=== PATIENT | male | born 1975 | race Caucasian/White ===

== ENCOUNTER 2017-05-23 04:10 | Observation (INO) ==
[2017-05-23] MEDS ORDERED: SODIUM CHLORIDE 1,000 ML IV STA (04:36)
[2017-05-23] MEDS ORDERED: ZOFRAN 4 MG/2 ML IVP STA (04:36)
[2017-05-23] MEDS ORDERED: MORPHINE 2 MG/ML SYRINGE IVP STA (04:36)
[2017-05-23 04:41] LABS: BASOPHILS # (AUTO) 0.1 K/uL (0-0.2); BASOPHILS % (AUTO) 0.4 % (0.0-3.0); EOSINOPHILS # (AUTO) 0.4 K/ul (0.0-0.7); EOSINOPHILS % (AUTO) 2.8 % (0.0-7.0); HEMATOCRIT 52.1 % (42.0-52.0); HEMOGLOBIN 18.7 g/dl (14.0-18.0); IMMATURE GRANULOCYTE % (AUTO) 0.3 % (0.0-5.0); LYMPHOCYTES % (AUTO) 13.8 (10.0-50.0); MEAN CORPUSCULAR HEMOGLOBIN 28.1 pg (27.0-31.0); MEAN CORPUSCULAR HGB CONC 35.9 (31.8-35.4); MEAN CORPUSCULAR VOLUME 78.2 fl (80.0-94.0); MONOCYTES # (AUTO) 0.8 K/uL (0.4-2.0); MONOCYTES % (AUTO) 5.5 (0-10); NEUTROPHILS # (AUTO) 11.2 K/ul (2.0-6.9); NEUTROPHILS % (AUTO) 77.2; PLATELET COUNT 203 10^3/uL (140-440); RED BLOOD COUNT 6.66 10^6/ul (4.70-6.10); WHITE BLOOD COUNT 14.54 K/ul (4.2-10.2)
[2017-05-23 04:46] LABS: BILIRUBIN,URINE Negative (NEGATIVE); KETONES,URINE Negative (NEGATIVE); LEUKOCYTE ESTERASE ,URINE Negative (NEGATIVE); NITRITE,URINE Negative (NEGATIVE); PROTEIN,URINE Negative (NEGATIVE); URINE, BLOOD Negative (NEGATIVE)
[2017-05-23 04:47] LABS: ADD URINE MICROSCOPIC NO
[2017-05-23 05:05] LABS: ALBUMIN/GLOBULIN RATIO 1.38; ANION GAP 12.5; BILIRUBIN,TOTAL 0.43 mg/dL (0.00-1.20); BUN/CREATININE RATIO 11.81; CALCIUM 9.7 mg/dL (8.2-10.2); CREATININE 1.1 mg/dL (0.60-1.10); POTASSIUM 3.5 mmol/L (3.5-5.1); TOTAL PROTEIN 6.9 g/dL (6.4-8.2)
[2017-05-23 05:13] LABS: ERYTHROCYTE SEDIMENTATION RATE 0 mm/hr (0-15); ESR INTERNAL QC INTERNAL QC VALID
--- NOTE | 2017-05-23 06:13 | ED.PDOC ---
General ED Provider: Dr. AWILDA CATALAN-ER Chief Complaint: Abdominal Pain Stated Complaint: im hurting and i think its diverticulitis Time Seen by Physician: 04:15 Mode of Arrival: Walk-In Information Source: Patient Exam Limitations: No limitations Nursing and Triage Documentation Reviewed and Agree: Yes GI Complaint Exam - Abdominal Pain Complaint/Exam Onset: Gradual Duration: several h ours Symptoms Are: Still present Timing: Constant Initial Severity: Mild Current Severity: Moderate Location of Pain: LLQ Radiates To: Reports: Back Character: Reports: Dull, Aching, Cramping Aggravating: Reports: None Alleviating: Reports: None Associated Signs and Symptoms: Denies: Diaphoresis, Fever, Cough, Chest pain, Dizziness, Back pain, Constipation, Blood in stool, Dysuria, Urinary frequency, Decreased urine output, Decreased appetite, Discharge, Nausea, Vomiting, Diarrhea, Decreased activity AAA Risk Factors: Reports: Smoking Cardiac Risk Factors: Reports: Smoking Testicular Torsion Risk Factors: Reports: None Surgical Obstruction Risk Factors: Reports: Colicky abdominal pain Abdominal Findings: Present: None Differential Diagnoses: Constipation, Diverticulitis, Ureteral Stone Review of Systems - Review Of Systems Constitutional: Reports: No symptoms Eyes: Reports: No symptoms Ears, Nose, Mouth, Throat: Reports: No symptoms Respiratory: Reports: No symptoms Cardiac: Reports: No symptoms GI: Reports: Abdominal pain : Reports: No symptoms Musculoskeletal: Reports: No symptoms Skin: Reports: No symptoms Neurological: Reports: No symptoms Endocrine: Reports: No symptoms Hematologic/Lymphatic: Reports: No symptoms All Other Systems: Reviewed and Negative Past Medical History - Past Medical History Previously Healthy: Yes Endocrine: Reports: Unknown Cardiovascular: Reports: Unknown Respiratory: Reports: Unknown Hematological: Reports: Unknown Gastrointestinal: Reports: Unknown Genitourinary: Reports: Unknown Neuro/Psych: Reports: Unknown Musculoskeletal: Reports: Unknown Cancer: Reports: Unknown - Surgical History General Surgical History: Reports: Unknown - Family History Family History: Reports: Unknown - Social History Smoking Status: Current every day smoker Hx Substance Use: No Alcohol Screening: None Lives: With family - Immunizations Tetanus Shot up to Date: Yes Physical Exam - Physical Exam Appearance: Well-appearing, No pain distress, Well-nourished Pain Distress: Mild Eyes: JHONATHAN, EOMI, Conjunctiva clear ENT: Ears normal, Nose normal, Oropharynx normal Neck: Supple Respiratory: Airway patent, Breath sounds clear, Breath sounds equal, Respirations nonlabored Cardiovascular: RRR, Pulses normal, No rub, No murmur GI/: Soft, No masses, Bowel sounds normal, No Organomegaly, Tender Musculoskeletal: Normal strength Skin: Warm, Dry, Normal color Neurological: Sensation intact, Motor intact, Reflexes intact, Cranial nerves intact, Alert, Oriented Psychiatric: Affect appropriate, Mood appropriate Interpretation - Radiology Interpretation Radiology Interpretation By: Radiologist Radiology Results: Positive Exam Interpreted: CT Scan Re-Evaluation - Re-Evaluation Time of Re-Evaluation: 06:26 Status: Improved Vital Signs Stable: Yes Pain Level: 0 Appearance: NAD Lungs: Clear Skin: Warm and Dry Neuro: Alert and Oriented X3 CV: RRR Physician Notification - Case Discussed Physician Notified: dr higuera--hospitalist Time of Notification: 06:26 Critical Care Note - Critical Care Note Total Time (mins): 0 Course - Course Hematology/Chemistry: 05/23/17 04:30 05/23/17 04:30 Orders, Labs, Meds: Lab Review 05/23/17 05/23/17 05/23/17 04:10 04:30 04:30 WBC 14.54 H RBC 6.66 H Hgb 18.7 H Hct 52.1 H MCV 78.2 L MCH 28.1 MCHC 35.9 H RDW Coeff of Katie 15.4 H Plt Count 203 Immature Gran % (Auto) 0.3 Neut % (Auto) 77.2 Lymph % (Auto) 13.8 Lyman % (Auto) 5.5 Eos % (Auto) 2.8 Baso % (Auto) 0.4 Immature Gran # (Auto) 0.0 Neut # 11.2 H Lymph # 2.0 Lyman # 0.8 Eos # 0.4 Baso # 0.1 ESR Sodium 140 Potassium 3.5 Chloride 106 Carbon Dioxide 25 Anion Gap 12.5 BUN 13 Creatinine 1.10 Estimated GFR (MDRD) 73.00 BUN/Creatinine Ratio 11.81 Glucose 111 H Calcium 9.7 Total Bilirubin 0.43 AST 21 ALT 34 Alkaline Phosphatase 107 Total Protein 6.9 Albumin 4.0 Globulin 2.9 Albumin/Globulin Ratio 1.38 Amylase 78 Lipase 52 Urine Color Yellow Urine Clarity Clear Urine pH 6.0 Ur Specific [place] 1.015 Urine Protein Negative Urine Glucose (UA) Negative Urine Ketones Negative Urine Blood Negative Urine Nitrite Negative Urine Bilirubin Negative Urine Urobilinogen 0.2 Ur Leukocyte Esterase Negative 05/23/17 04:30 WBC RBC Hgb Hct MCV MCH MCHC RDW Coeff of Katie Plt Count Immature Gran % (Auto) Neut % (Auto) Lymph % (Auto) Lyman % (Auto) Eos % (Auto) Baso % (Auto) Immature Gran # (Auto) Neut # Lymph # Lyman # Eos # Baso # ESR 0 Sodium Potassium Chloride Carbon Dioxide Anion Gap BUN Creatinine Estimated GFR (MDRD) BUN/Creatinine Ratio Glucose Calcium Total Bilirubin AST ALT Alkaline Phosphatase Total Protein Albumin Globulin Albumin/Globulin Ratio Amylase Lipase Urine Color Urine Clarity Urine pH Ur Specific [place] Urine Protein Urine Glucose (UA) Urine Ketones Urine Blood Urine Nitrite Urine Bilirubin Urine Urobilinogen Ur Leukocyte Esterase Orders Category Date Time Status NPO REMINDER: IMAGING ONCE CARE 05/23/17 04:37 Completed ED IV/MEDIPORT/POWERPORT .ONCE EMERGENCY 05/23/17 04:36 Active AMYLASE Stat LAB 05/23/17 04:30 Completed CBC W/ AUTO DIFF Stat LAB 05/23/17 04:30 Completed COMPREHENSIVE METABOLIC PANEL Stat LAB 05/23/17 04:30 Completed ESR Stat LAB 05/23/17 04:30 Completed LIPASE Stat LAB 05/23/17 04:30 Completed URINALYSIS C & S IF INDICATED Stat LAB 05/23/17 04:10 Completed 0.9 % Sodium Chloride [Saline Flush] MEDS 05/23/17 04:36 Ordered 1 syr IVF PRN PRN Morphine Sulfate [Morphine 2 mg/ml Syringe] MEDS 05/23/17 04:36 Discontinued 2 mg IVP ONCE STA Ondansetron HCl/Pf [Zofran 4 mg/2 ml] MEDS 05/23/17 04:36 Discontinued 4 mg IVP ONCE STA Sodium Chloride 0.9% [Sodium Chloride] 1,000 ml MEDS 05/23/17 04:36 Active IV 100 mls/hr CT ABDOMEN/PELVIS W/WO CONTRAS Stat RADS 05/23/17 04:37 Taken Medications Generic Name Dose Route Start Last Admin Trade Name Freq PRN Reason Stop Dose Admin Sodium Chloride 1,000 mls @ 100 mls/hr 05/23/17 04:36 05/23/17 04:40 Sodium Chloride IV 05/23/17 14:35 100 mls/hr .Q10H STA Administration Sodium Chloride 1 syr 05/23/17 04:36 05/23/17 04:47 Saline Flush IVF 1 syr PRN PRN Administration To flush IV Discontinued Medications Generic Name Dose Route Start Last Admin Trade Name Katherine PRN Reason Stop Dose Admin Morphine Sulfate 2 mg 05/23/17 04:36 05/23/17 04:43 Morphine 2 Mg/Ml Syringe IVP 05/23/17 04:37 2 mg ONCE STA Administration Ondansetron HCl 4 mg 05/23/17 04:36 05/23/17 04:42 Zofran 4 Mg/2 Ml IVP 05/23/17 04:37 4 mg ONCE STA Administration Vital Signs: Temp Pulse Resp BP Pulse Ox 05/23/17 04:10 96.6 F L 78 18 135/87 98 Departure - Departure Time of Disposition: 06:26 Disposition: ADMITTED INPATIENT Discharge Problem: Diverticulitis large intestine w/o perforation or abscess w/o bleeding Instructions: Diverticulitis (ED) Condition: Good Pt referred to PMD for follow-up: No Allergies/Adverse Reactions: Allergies No Known Allergies Allergy (Verified 05/23/17 04:20) Home Medications: Ambulatory Orders 1 [No Reported Medications] 05/23/17 Disposition Discussed With: Patient
[2017-05-23] MEDS ORDERED: MORPHINE 2 MG/ML SYRINGE IVP PRN ×2 (06:32→06:43)
[2017-05-23] MEDS ORDERED: ZOFRAN 4 MG/2 ML IVP PRN (06:32)
[2017-05-23 07:53] VITALS: BMI 26.1
--- NOTE | 2017-05-23 09:18 | CT ---
EXAM: CT of the abdomen and pelvis with and without IV contrast. HISTORY: Left lower quadrant pain. PROCEDURE: Contiguous axial CT images of the abdomen and pelvis with and without IV contrast with co meli and sagittal reformats. FINDINGS: The liver, gallbladder, pancreas, spleen, adrenal glands and kidneys are normal in appeara nce. The abdominal aorta is normal in appearance. The appendix is normal in appearance. There is d iverticulosis of the colon. There is focal bowel wall thickening in the distal descending colon josefa uring 0.8 cm with adjacent inflammatory stranding consistent with diverticulitis. No free fluid or f ree air in the abdomen or pelvis. The bladder is adequately filled with no abnormality identified. The seminal vesicles and prostate gland are unremarkable. There are operative changes and degenerati ve changes in the spine. Impression: Diverticulitis of the sigmoid colon as described.
[2017-05-23] MEDS: D5%-NS-KCL 20 MEQ/L IV SOL 1,000 ML IV SCH ×2 (09:36→20:12)
[2017-05-23] MEDS: LEVAQUIN 500 MG in PREMIX 100 ML D5W 1 BAG IV SCH ×2 (09:41→09:42)
[2017-05-23] MEDS: MORPHINE 4 MG/ML SYRINGE IVP PRN ×6 (09:50→21:50)
--- NOTE | 2017-05-23 11:57 | PCM.PROG ---
Attending Provider: ATTENDING PROVIDER: [facility] DATE OF SERVICE: 05/23/17 SUBJECTIVE: This 41 year old WHITE/ M was hospitalized 05/23/17. The patient is seen with Sandee, Nurse Practitioner. The patient is alert, lying in bed. The patient started with left-sided abdominal pain yesterday. He came to ER last night. The patient 's last colonoscopy was in 2013. He has had had diarrhea which he says is chronic. No nausea, or vomiting. No fever. REVIEW OF SYSTEMS: CONSTITUTIONAL: No night sweats. No fatigue, malaise, lethargy. No fever or chills. HEENT: Eyes: No visual changes. No eye pain. No eye discharge. ENT: No runny nose. No epistaxis. No sinus pain. No odynophagia. No congestion. RESPIRATORY: No cough, no congestion. No hemoptysis. No shortness of breath. CARDIOVASCULAR: No angina symptoms. No CHF symptoms. No atypical chest pain for CAD. No palpitations. No orthopnea.. GASTROINTESTINAL: Diarrhea. Abdominal pain. No nausea or vomiting. No hematemesis. No hematochezia. GENITOURINARY: No urgency. No frequency. No dysuria. No hematuria. No obstructive symptoms. No discharge. No pain. No significant abnormal bleeding. MUSCULOSKELETAL: No musculoskeletal pain; no joint swelling. NEUROLOGICAL: Awake, alert, oriented to time, place and person. No headache. No neck pain. No syncope. No seizures. No dizziness. PSYCHIATRIC: Not anxious. No depression. No suicidal thoughts. No homicidal thoughts. SKIN: No rash. No lesions. No wounds. ENDOCRINE: No unexplained weight loss. No weight gain. HEMATOLOGIC/LYMPHATIC: No anemia. No purpura. No petechiae. No prolonged or excessive bleeding. No palpable lymph nodes. PHYSICAL EXAMINATION: GENERAL: The patient is awake, alert and oriented, lying in bed in no distress. VITAL SIGNS: Temperature 96.6 F, Pulse 78, Respiratory Rate 18, BP 135/87, Pulse Ox 98% HEENT: Head normocephalic, atraumatic. Eyes: Extraocular muscles are intact. Pupils are equal, round and reactive to light and accommodation. Ears: No lesions. Nose appeared normal. Throat: No exudate or erythema. NECK: Supple. No JVD, no carotid bruit. No lymphadenopathy or thyromegaly. LUNGS: Diminished breath sounds. Clear to auscultation. Percussion note normal. Chest symmetrical. HEART: S1, S2, no S3. No murmurs. No cyanosis or clubbing. No ascites. Pulses: Dorsalis pedis and posterior tibial pulses +1 to +2 both sides. ABDOMEN: Soft. Left lower quadrant tenderness. Bowel sounds active. No CVA tenderness. No mass felt. EXTREMITIES: No edema. Full range of motion of all extremities, equal. NEUROLOGIC: No focal deficit. Cranial nerves II through XII are grossly intact. No headache, no double vision or headache. SKIN: Not dry. Intact. Turgor-normal. LYMPHATIC: No palpable lymph nodes/no lymphedema. MUSCULOSKELETAL: Normal joints with no swelling. Muscle tone is normal. ASSESSMENT: 1. Left lower quadrant abdominal pain, CT pending. 2. Polycythemia 3. Smoker PLAN: 1. Due to history of diverticulitis, will treat until CT results are back. Plan and coordination of the patient's care discussed in the presence of Filling Station Attendant and nurse. CONDITION: Stable SCRIBED BY: ROBERTO GRACE Practice Or Student Teacher scribed while in presence of service performed by Dr. FRANCIA MURPHY-[facility] on 05/23/17 ([id number])
[2017-05-23] MEDS: FLAGYL 500 MG/100 ML 500 MG in PREMIX 100 ML NS 1 BAG IV SCH ×2 (13:00→20:34)
[2017-05-24] MEDS: MORPHINE 4 MG/ML SYRINGE IVP PRN ×3 (00:12→05:33)
[2017-05-24] MEDS: FLAGYL 500 MG/100 ML 500 MG in PREMIX 100 ML NS 1 BAG IV SCH (04:09)
[2017-05-24 04:49] LABS: BASOPHILS % (AUTO) 0.3 % (0.0-3.0); EOSINOPHILS # (AUTO) 0.4 K/ul (0.0-0.7); EOSINOPHILS % (AUTO) 3.1 % (0.0-7.0); HEMATOCRIT 50.6 % (42.0-52.0); HEMOGLOBIN 17.9 g/dl (14.0-18.0); IMMATURE GRANULOCYTE % (AUTO) 0.2 % (0.0-5.0); LYMPHOCYTES # (AUTO) 2.4 K/uL (0.60-3.4); LYMPHOCYTES % (AUTO) 18.8 (10.0-50.0); MEAN CORPUSCULAR HGB CONC 35.4 (31.8-35.4); MEAN CORPUSCULAR VOLUME 79.2 fl (80.0-94.0); MONOCYTES # (AUTO) 1.1 K/uL (0.4-2.0); MONOCYTES % (AUTO) 8.5 (0-10); NEUTROPHILS % (AUTO) 69.1; PLATELET COUNT 207 10^3/uL (140-440); RED BLOOD COUNT 6.39 10^6/ul (4.70-6.10); WHITE BLOOD COUNT 12.96 K/ul (4.2-10.2)
[2017-05-24 05:15] LABS: ALBUMIN 3.4 g/dL (3.4-5.0); ALBUMIN/GLOBULIN RATIO 1.13; ANION GAP 11.1; BILIRUBIN,TOTAL 0.82 mg/dL (0.00-1.20); BUN/CREATININE RATIO 7.2; CALCIUM 9.4 mg/dL (8.2-10.2); CREATININE 1.11 mg/dL (0.60-1.10); POTASSIUM 4.1 mmol/L (3.5-5.1); TOTAL PROTEIN 6.4 g/dL (6.4-8.2)
[2017-05-24 05:44] VITALS: BP 118/78; TEMP 98.3
[2017-05-24] MEDS: D5%-NS-KCL 20 MEQ/L IV SOL 1,000 ML IV SCH ×3 (06:21→07:01)
[2017-05-24] MEDS ORDERED: MORPHINE 2 MG/ML SYRINGE IVP PRN (07:53)
[2017-05-24] MEDS: LEVAQUIN 500 MG in PREMIX 100 ML D5W 1 BAG IV SCH (08:32)
--- NOTE | 2017-05-24 13:02 | PCM.PROG ---
Attending Provider: [facility] DATE [facility]: 05/24/17 SUBJECTIVE: This 41 year old WHITE/ M was hospitalized 05/23/17. The patient is seen with Sandee, Nurse Practitioner. The patient is lying in bed, alert. The patient states he feels well enough to go home. He has been getting up and going outside to smoke. He is eating 75% of his meals. The abdominal pain is slightly better. No fever. No diarrhea. REVIEW OF SYSTEMS: CONSTITUTIONAL: No night sweats. No fatigue, malaise, lethargy. No fever or chills. HEENT: Eyes: No visual changes. No eye pain. No eye discharge. ENT: No runny nose. No epistaxis. No sinus pain. No odynophagia. No congestion. RESPIRATORY: No cough, no congestion. No hemoptysis. No shortness of breath. CARDIOVASCULAR: No angina symptoms. No CHF symptoms. No atypical chest pain for CAD. No palpitations. No orthopnea.. GASTROINTESTINAL: Abdominal pain has improved. No nausea or vomiting. No diarrhea or constipation. No hematemesis. No hematochezia. GENITOURINARY: No urgency. No frequency. No dysuria. No hematuria. No obstructive symptoms. No discharge. No pain. No significant abnormal bleeding. MUSCULOSKELETAL: No musculoskeletal pain; no joint swelling. NEUROLOGICAL: Awake, alert, oriented to time, place and person. No headache. No neck pain. No syncope. No seizures. No dizziness. PSYCHIATRIC: Not anxious. No depression. No suicidal thoughts. No homicidal thoughts. SKIN: No rash. No lesions. No wounds. ENDOCRINE: No unexplained weight loss. No weight gain. HEMATOLOGIC/LYMPHATIC: No anemia. No purpura. No petechiae. No prolonged or excessive bleeding. No palpable lymph nodes. PHYSICAL EXAMINATION: GENERAL: The patient is awake, alert and oriented, lying in bed in no distress. VITAL SIGNS: Temperature 98.3 F, Pulse 89, Respiratory Rate 19, BP 118/78, Pulse Ox 96% HEENT: Head normocephalic, atraumatic. Eyes: Extraocular muscles are intact. Pupils are equal, round and reactive to light and accommodation. Ears: No lesions. Nose appeared normal. Throat: No exudate or erythema. NECK: Supple. No JVD, no carotid bruit. No lymphadenopathy or thyromegaly. LUNGS: Diminished breath sounds. Clear to auscultation. Percussion note normal. Chest symmetrical. HEART: S1, S2, no S3. No murmurs. No cyanosis or clubbing. No ascites. Pulses: Dorsalis pedis and posterior tibial pulses +1 to +2 both sides. ABDOMEN: Soft. Left lower quadrant tenderness. Bowel sounds active. No CVA tenderness. No mass felt. EXTREMITIES: No edema. Full range of motion of all extremities, equal. NEUROLOGIC: No focal deficit. Cranial nerves II through XII are grossly intact. No headache, no double vision or headache. SKIN: Not dry. Intact. Turgor-normal. LYMPHATIC: No palpable lymph nodes/no lymphedema. MUSCULOSKELETAL: Normal joints with no swelling. Muscle tone is normal. LAB REVIEW: 05/24/17 04:46 05/24/17 04:46 05/24/17 04:46: Sodium 140, Potassium 4.1, Chloride 107, Carbon Dioxide 26, Anion Gap 11.1, BUN 8, Creatinine 1.11 H, Estimated GFR (MDRD) 73.00, BUN/ Creatinine Ratio 7.20, Glucose 110 H, Calcium 9.4, Total Bilirubin 0.82, AST 16 , ALT 26, Alkaline Phosphatase 92, Total Protein 6.4, Albumin 3.4, Globulin 3.0 , Albumin/Globulin Ratio 1.13 05/24/17 04:46: WBC 12.96 H, RBC 6.39 H, Hgb 17.9, Hct 50.6, MCV 79.2 L, MCH 28.0, MCHC 35.4, RDW Coeff of Katie 14.9 H, Plt Count 207, Immature Gran % (Auto) 0.2, Neut % (Auto) 69.1, Lymph % (Auto) 18.8, [place] % (Auto) 8.5, Eos % (Auto) 3.1, Baso % (Auto) 0.3, Immature Gran # (Auto) 0.0, Neut # 9.0 H, Lymph # 2.4, [place] # 1.1, Eos # 0.4, Baso # 0.0 ASSESSMENT: 1. Acute diverticulitis 2. Polycythemia 3. Smoker PLAN: 1. Diet discussed 2. Smoking cessation discussed 3. Flagyl 500 mg t.i.d. times 10 days 4. Levaquin 500 mg once a day times 6 days 5. Discharge home 6. Sawyer 5 mg t.i.d. p.r.n.#30 Plan and coordination of the patient's care discussed in the presence of Coin Dealer and nurse. CONDITION: Stable SCRIBED BY: ROBERTO GRACE Technical Support 1 Software Engineer scribed while in presence of service performed by Dr. FRANCIA MURPHY-[facility]/SANDEE ASHRAF APRN on 05/24/17 ([id number])
--- NOTE | 2017-05-25 09:18 | PN ---
DATE OF SERVICE: 05/24/17 SUBJECTIVE: 41 year old white male hospitalized with left lower quadrant pain with acute diverticulitis. The patient is up and about smoking. His appetite is normal. He is hungry this morning. He is passing gas. He is insisting going home otherwise he is going to sign out against medical advise. PHYSICAL EXAMINATION: HEENT: Head normocephalic, atraumatic. Eyes: Extraocular muscles are intact. Pupils are equal, round and reactive to light and accommodation. Ears: No lesions. Nose appeared normal. Throat: No exudate or erythema. NECK: Supple. No JVD, no carotid bruit. No lymphadenopathy or thyromegaly. LUNGS: Clear to auscultation. Percussion note normal. Chest symmetrical. HEART: S1, S2, no S3. No murmurs. No cyanosis or clubbing. No ascites. Pulses: Dorsalis pedis and posterior tibial pulses +1 to +2 both sides. ABDOMEN: Soft. Practically Nontender. Bowel sounds active. No CVA tenderness. No mass felt. EXTREMITIES: No edema. Full range of motion of all extremities, equal. NEUROLOGIC: No focal deficit. Cranial nerves II through XII are grossly intact. No headache, no double vision or headache. SKIN: Not dry. Intact. Turgor - normal. LYMPHATIC: No palpable lymph nodes/no lymphedema. MUSCULOSKELETAL: Normal joints with no swelling. Muscle tone is normal. ASSESSMENT: 1. Acute diverticulitis seems to have resolved clinically. The patient is refusing to have repeat CAT scan PLAN: 1. We will put patient on Flagyl 2. Discharge him home 3. To be seen on . 4. Advised soft diet and full liquids with no dairy products 5. Explained about diverticulitis and it's complications. If fever and chills with abdominal pain go to the emergency room. 6. The patient is going to be scheduled Dr. Ferguson, he saw before. 7. Counseling for smoking done 8. Diet for diverticulosis discussed CONDITION: Stable The patient was seen and examined with Nurse Practitioner and Audit Practice Intern. TIME SPENT: More than 30 minutes. Plan and coordination of the patient's care discussed in the presence of nurse. DUGLAS
--- NOTE | 2017-05-25 09:59 | DS ---
DATE OF SERVICE: 05/24/17 FINAL DIAGNOSIS: 1. Acute Diverticulitis 2. Smoker DISCHARGE INSTRUCTIONS: Discharge the patient home today. Return to see Dr. Griffin on 05/26/17 at 10:30am. Keep appointment with Dr. Ferguson on 06/21/17 at 10:20am. No home medications. NEW PRESCRIPTIONS: Flagyl 500mg take one tablet by mouth three times a day for 10 days Levaquin 500mg take one tablet by mouth daily for 6 days Tramadol 50mg take one to two tablets by mouth twice daily if needed PRN pain. DIET INSTRUCTIONS: Diverticulitis diet Healthy Heart. ACTIVITY: No work until released by Dr. Griffin Get plenty of rest at home. Gradually increase activity level according to toleration. SMOKING: Counseling for smoking done. DISEASE SPECIFIC EDUCATION: Diet Followup Medications Smoking cessation HOSPITAL COURSE: This is a 41 year old male who presented to the emergency room at [facility] complaining of left sided abdominal pain that was cramping and colicky in nature. He states he had a history of diverticulitis in the past. His last colonoscopy was in [address] Watkins in [place]. He had not been experiencing any fever. He had had some diarrhea which he states is chronic and he always has. He was not currently on any medication and stated that he had no regular doctor. He was subsequently admitted and placed on IV Levaquin 500mg Q 24 hours along with Flagyl 500mg three times a day. On admission his white was 14,000, hgb 18.4 and today on day of discharge WBC is improved at 12.96, hgb improved at 17.9, sodium 140, potassium 4.1, BUN 8, creatinine 1.11. He has remained afebrile white he has been here. He was not febrile at admission and has not had any fever since being here. He stated this morning that he was ready to go home and did not want to stay in the hospital. He would like to be discharge. He has been eating 75% of his meals since admission and has also been getting up and going outside to smoke every 2-3 hours. He will discharged on Levaquin 500mg PO daily for the next 6 days along with Flagyl 500mg three times a day for the next 10 days. He is instructed to return to our office on for a followup. He is not allowed to work through the rest of the week. Information has been given to him regarding a low residual diet. He is instructed to advance diet as tolerated. Education was provided regarding smoking cession. He was given Ultram 50mg three times a day for pain if needed. We will see him in the office later this week. He is discharged in stable. Again the patient strongly voiced option that he was ready to be discharged today. TIME SPENT: More than 60 minutes. DUGLAS
--- NOTE | 2017-05-25 11:32 | HP ---
DATE OF SERVICE: 05/23/17 REASON FOR HOSPITALIZATION/HISTORY OF PRESENT ILLNESS: This is a 41 year old white who presented to the emergency room early this morning complaining of abdominal pain stating that he thought it was diverticulitis. He has had this before. He stated that his pain started two days ago and had gradually gotten worse. He was experiencing diarrhea however that this was chronic for him. He had had not fever, no nausea and no vomiting. REVIEW OF SYSTEMS: CONSTITUTIONAL: No night sweats. No fatigue, malaise, lethargy. No fever or chills. Decreased appetite. HEENT: Eyes: No visual changes. No eye pain. No eye discharge. ENT: No runny nose. No epistaxis. No sinus pain. No sore throat. No odynophagia. No ear pain. No congestion. RESPIRATORY: No cough, no congestion. No hemoptysis. No shortness of breath. CARDIOVASCULAR: No angina symptoms. No CHF symptoms. No atypical chest pain for CAD. No palpitations. No orthopnea. GASTROINTESTINAL: Abdominal pain. No nausea or vomiting. Diarrhea. No hematemesis. No hematochezia. GENITOURINARY: No urgency. No frequency. No dysuria. No hematuria. No obstructive symptoms. No discharge. No pain. No significant abnormal bleeding. MUSCULOSKELETAL: No musculoskeletal pain. No joint swelling. No arthritis. NEUROLOGICAL: No headache. No neck pain. No syncope. No seizures. No dizziness. No confusion. Alert and oriented. PSYCHIATRIC: Not anxious. No depression. No suicidal thoughts. No homicidal thoughts. SKIN: No rash. No lesions. No wounds. ENDOCRINE: No unexplained weight loss. No weight gain. HEMATOLOGIC/LYMPHATIC: No anemia. No purpura. No petechiae. No prolonged or excessive bleeding. No palpable lymph nodes. PERSONAL/FAMILY/SOCIAL HISTORY: At least a pack per day smoker. He denies any alcohol or illicit drug use. He currently lives with his family. PAST MEDICAL/SURGICAL PROBLEMS: Colonoscopy [place] [address] Watkins History of diverticulitis Spinal fusion L4 and L5 and S1 by Dr. Lynch Right knee repair after injury Left inguinal hernia repair The patient states that he has no primary doctor. MEDICATIONS: None ALLERGIES: No known allergies. PHYSICAL EXAMINATION: GENERAL: The patient is well appearing and no acute distress, Well nourished and describes pain as mild. VITAL SIGNS: Temperature 96.6, heart rate 78, respirations 18, blood pressure 135/87 and pulse ox 98% on room air. HEENT: Head normocephalic, atraumatic. Eyes: Extraocular muscles are intact. Pupils are equal, round and reactive to light and accommodation. Ears: No lesions. Nose and oral oropharynx was pink. Moist mucosa. Throat: No exudate or erythema. NECK: Supple. No JVD, no carotid bruit. No lymphadenopathy or thyromegaly. LUNGS: Clear with diminished breath sounds bilaterally. Respirations are nonlabored. Percussion note normal. Chest symmetrical. HEART: S1, S2, no S3. No murmurs. No cyanosis or clubbing. No ascites. Pulses: Dorsalis pedis and posterior tibial pulses +1 to +2 both sides. ABDOMEN: Soft non distended. Mild tenderness left lower quadrant. Bowel sounds active times four quadrants. No CVA tenderness. No mass felt. EXTREMITIES: No edema. Full range of motion of all extremities, equal. No calf tenderness. NEUROLOGIC: No focal deficit. Cranial nerves II through XII are grossly intact. No headache, no double vision or headache. The patient is alert and oriented times three. SKIN: Warm. Dry. Intact. Turgor - normal. LYMPHATIC: No palpable lymph nodes/no lymphedema. MUSCULOSKELETAL: Normal joints with no swelling. Muscle tone is normal. LABS: CT scan revealed sigmoidal diverticulitis of the colon. WBC 14.54, hgb 18.7, hct 52.1, plt count 203, sodium 140, potassium 3.5, BUN 13, creatinine 1.1, glucose 111, calcium 9.7, AST 21, ALT 34, Alkaline phosphatase 107, total protein 6.9, amylase 78, lipase 52, urine is normal no protein, no blood and no nitrate, no bilirubin and leukocyte esterase. ASSESSMENT: 1. Sigmoidal diverticulitis 2. Polycythemia 3. Smoker PLAN: 1. Will be placed on IV fluids 2. IV Levaquin once daily 3. IV Flagyl 500mg three times a day 4. Routine telemetry orders 5. Chest x-ray 6. CBC and CMP daily 7. Low residual BRAT diet 8. Zofran PRN for nausea 9. Morphine 4mg IV Q 4 hours PRN for pain 10.He is a full code Will monitor closely. TIME SPENT: More than 70 minutes. MTDD
--- NOTE | 2017-05-25 13:43 | PN ---
DATE OF SERVICE: 05/23/17 ADMIT NOTE SUBJECTIVE: The patient is a 41 year old white male was seen and examined in the ER and was diagnosed to have acute diverticulitis left sided, complained of left lower quadrant pain for a few days. The patient has history of diverticulitis. He has colonoscopy done in the near past by Dr. Watkins. PHYSICAL EXAMINATION: GENERAL: The patient is oriented to time, place and person. HEENT: Head normocephalic, atraumatic. Eyes: Extraocular muscles are intact. Pupils are equal, round and reactive to light and accommodation. Ears: No lesions. Nose appeared normal. Throat: No exudate or erythema. NECK: Supple. No JVD, no carotid bruit. No lymphadenopathy or thyromegaly. LUNGS: Decreased breath sounds bilaterally and clear to auscultation. Percussion note normal. Chest symmetrical. HEART: S1, S2, no S3. No murmurs. No cyanosis or clubbing. No ascites. Pulses: Dorsalis pedis and posterior tibial pulses +1 to +2 both sides. ABDOMEN: Soft. Left lower quadrant tenderness mild. Bowel sounds active. No CVA tenderness. No mass felt. EXTREMITIES: No edema. Full range of motion of all extremities, equal. NEUROLOGIC: No focal deficit. Cranial nerves II through XII are grossly intact. No headache, no double vision or headache. SKIN: Not dry. Intact. Turgor - normal. LYMPHATIC: No palpable lymph nodes/no lymphedema. MUSCULOSKELETAL: Normal joints with no swelling. Muscle tone is normal. The first time I went to see the patient he was out smoking. LABS: CT scan of the abdomen showed acute diverticulitis ASSESSMENT: 1. Acute diverticulitis PLAN: 1. Given IV Flagyl and Levaquin 2. The patient has polycythemia likely from smoking and chronic lung disease and explained about this finding and complications that could occur from polycythemia 3. Counseling for smoking done 4. Counseling for the diet for diverticulitis done CONDITION: Stable. TIME SPENT: More than 30 minutes. Plan and coordination of the patient's care discussed in the presence of nurse. DUGLAS
== END 2017-05-24 10:23 | disposition home or self-care (01) ==
LOC: ED 04:10 → INTOOBSV 06:40 → MEDSURG B 06:40
PROVIDERS: ADMIT Internal Medicine; ATTEND Internal Medicine
DX: K57.32 Diverticulitis of large intestine without perforation or abscess without bleeding (principal); R10.814 Left lower quadrant abdominal tenderness; D75.1 Secondary polycythemia; J44.9 Chronic obstructive pulmonary disease, unspecified; F17.200 Nicotine dependence, unspecified, uncomplicated
CPT/HCPCS: 36415; 80053; 81001; 82150; 83690; 85025; 85651; 93005; 93010; 96361; 96374; 96375; 96376; 99284

== ENCOUNTER 2024-06-18 21:47 | Inpatient (IN) ==
--- NOTE | 2024-06-18 22:16 | ED.PDOC ---
General ED Provider: Dr. ARELY HUBBARD MD Chief Complaint: Abdominal Pain Stated Complaint: 48-year-old male reported to the emergency department for acute abdominal pain. Patient stated that most of his abdominal pain is in the mid and lower quadrants of the abdomen. Patient stated that like a burning sensation. Patient stated that he was seen 2 days ago in an ER in [facility] and received an abdominal CTs which showed no pathology per the patient. Patient stated that he was started on Carafate and told to continue to take his pantoprazole 40 mg daily and follow-up with a GI specialist. Patient stated that he has an appointment with GI specialist in 2 days but could not wait as his abdominal pain was a 10 out of 10. Patient states that his abdominal pain is continuous. Patient stated that the only abdominal surgery he had was an inguinal hernia repair 30 years ago. Patient denies any recent trauma to the abdomen. Patient denies any recent illnesses. Patient denies any nausea, vomiting, diarrhea, dizziness, syncope, headache, fever or any other acute symptoms. Patient denied any melanic stools. Patient denied any hematochezia, hemoptysis. Patient's vital signs are currently stable. Patient's GCS is 15. Time Seen by Provider: 06/18/24 21:49 Mode of Arrival: Walk-In Information Source: Patient Exam Limitations: No limitations Primary Care Provider: DON SCHAFER APRN Nursing and Triage Documentation Reviewed and Agree: Yes Does Patient Take Opioids?: No Is Patient Opioid Naive?: No What is Opioid Naive?: *Opioid Naive implies the patient is not already taking opioids or not chronically receiving opioids on a daily basis. *PRN dosing is not "usually" associated with tolerance. *Patients are at higher risk of over-sedation and aspiration. Is Patient Opioid Tolerant?: No What is Opioid Tolerant?: *Opioid Tolerance implies less than the expected response to an opioid. *Acquired tolerance is defined by the patient taking 60mg of oral morphine daily (or equianalgesic dose of another opioid) for 1 week or more. *Often associated with chronic pain. *May take more than usual dose to achieve desired pain control. Review of Systems Review Of Systems Constitutional: Reports No symptoms Eyes: Reports No symptoms Ears, Nose, Mouth, Throat: Reports No symptoms Respiratory: Reports No symptoms Cardiac: Reports No symptoms GI: Reports Abdominal pain : Reports No symptoms Musculoskeletal: Reports No symptoms Skin: Reports No symptoms Neurological: Reports No symptoms Endocrine: Reports No symptoms Hematologic/Lymphatic: Reports No symptoms All Other Systems: Reviewed and Negative PFSH Family History Mother Cancer FATHER Heart problem Hypertension Stroke Social History Smoking and tobacco status: Current every day smoker History of recent travel: No Surgical History hernia surgery back surgery Physical Exam Physical Exam Appearance: Reports Well-nourished Ill-appearing: None Pain Distress: Severe Eyes: Reports JHONATHAN, EOMI and Conjunctiva clear ENT: Reports Nose normal and Oropharynx normal Neck: Supple Respiratory: Reports Airway patent, Breath sounds clear, Breath sounds equal and Respirations nonlabored Cardiovascular: Reports RRR, Pulses normal, No rub and No murmur GI/: Reports Soft, No masses, Bowel sounds normal and Tender (Patient had tenderness to palpation of the mid abdomen and lower abdominal quadrants. No masses noted. No bruising noted. No rebound tenderness. No Bello sign.) Musculoskeletal: Reports Normal strength, ROM intact, No edema and No calf tenderness Skin: Reports Warm, Dry and Normal color Neurological: Reports Sensation intact, Motor intact, Reflexes intact, Cranial nerves intact, Alert and Oriented Psychiatric: Reports Affect appropriate and Mood appropriate Course Course 06/18/24 22:14 06/18/24 22:14 Orders, Labs, Meds: Lab Review 06/18/24 06/18/24 22:05 22:14 WBC 13.90 H RBC 6.49 H Hgb 12.5 L Hct 42.8 MCV 65.9 L MCH 19.3 L MCHC 29.2 L RDW Coeff of Katie 21.5 H Plt Count 720 H Immature Gran % (Auto) 0.4 Neut % (Auto) 71.1 Lymph % (Auto) 18.9 [place] % (Auto) 5.6 Eos % (Auto) 3.5 Baso % (Auto) 0.5 Neut # (Auto) 9.9 H Lymph # (Auto) 2.6 [place] # (Auto) 0.8 Eos # (Auto) 0.5 Baso # (Auto) 0.1 Immature Gran # (Auto) 0.1 Sodium 135.0 Potassium 3.93 Chloride 103.7 Carbon Dioxide 19.7 L Anion Gap 15.53 BUN 15.9 Creatinine 1.46 H Estimated GFR (MDRD) 51.00 BUN/Creatinine Ratio 10.89 Glucose 118.9 H Calcium 8.46 Total Bilirubin 0.74 AST 41.1 ALT 25.4 Alkaline Phosphatase 133.0 H Total Protein 5.96 L Albumin 3.11 L Globulin 2.85 Albumin/Globulin Ratio 1.09 Lipase 434.0 H Urine Color Yellow Urine Clarity Clear Urine pH 6.5 Ur Specific [place] 1.020 Urine Protein Trace H Urine Glucose (UA) Negative Urine Ketones Negative Urine Blood Negative Urine Nitrite Negative Urine Bilirubin Negative Urine Urobilinogen 0.2 Ur Leukocyte Esterase Negative Urine Microscopic RBC 0-2 Urine Microscopic WBC 2-5 Ur Squamous Epith Cells 5-10 Ur Renal Epithelial Cell 0-2 Urine Bacteria Trace Urine Mucus Trace Orders Category Date Time Status NPO REMINDER: IMAGING ONCE CARE 06/18/24 22:09 Active CBC W/ AUTO DIFF Stat LAB 06/18/24 22:14 Completed COMPREHENSIVE METABOLIC PANEL Stat LAB 06/18/24 22:14 Completed H. PYLORI SCREEN Stat LAB 06/18/24 Ordered LIPASE Stat LAB 06/18/24 22:14 Completed URINALYSIS C & S IF INDICATED Stat LAB 06/18/24 22:05 Completed Morphine Sulfate [Morphine 4 mg/ml Syringe] Meds 06/18/24 22:08 Discontinued 4 mg IVP ONCE ONE Pantoprazole Sodium [Protonix] Meds 06/18/24 22:10 Discontinued 40 mg IVP ONCE ONE Sodium Chloride 0.9% [Sodium Chloride] 1,000 ml Meds 06/18/24 22:[address] ABDOMEN/PELVIS W CONTRAST Stat RADS 06/18/24 22:08 Ordered Medications Generic Name Dose Route Start Last Admin Trade Name Freq PRN Reason Stop Dose Admin Sodium Chloride 1,000 mls @ 1,000 mls/hr 06/18/24 22:08 06/18/24 22:32 Sodium Chloride IV 06/18/24 23:07 1,000 mls/hr BOLUS ONE Administration Discontinued Medications Generic Name Dose Route Start Last Admin Trade Name Freq PRN Reason Stop Dose Admin Morphine Sulfate 4 mg 06/18/24 22:08 06/18/24 22:32 Morphine Sulfate 4 Mg/Ml Syringe IVP 06/18/24 22:09 4 mg ONCE ONE Administration Pantoprazole Sodium 40 mg 06/18/24 22:10 10/07/24 22:32 Pantoprazole Sodium 40 Mg Vial IVP 06/18/24 22:11 40 mg ONCE ONE Administration Vital Signs: Temp Pulse Resp BP Pulse Ox 06/18/24 21:48 98.8 F 79 20 178/121 H 99 Discharge Plan Discharge Patient Disposition: PLACED OBSERVATION Discharge Problem: Abdominal pain, acute, Thrombocytosis, SUZANNA (acute kidney injury) Hypertension Qualifiers: Hypertension type: unspecified Qualified Code(s): I10 - Essential (primary) hypertension Acute pancreatitis Qualifiers: Pancreatitis type: idiopathic Acute pancreatitis complication: unspecified Q ualified Code(s): K85.00 - Idiopathic acute pancreatitis without necrosis or infection Did you review [place] DECONTAMINATOR for ALL controlled substances?: Not Applicable ED Provider: ARELY HUBBARD Condition: Stable Physician Progress Note: 48-year-old male reported to the emergency department for acute abdominal pain. Patient stated that most of his abdominal pain is in the mid and lower quadrants of the abdomen. Patient stated that like a burning sensation. Patient stated that he was seen 2 days ago in an ER in [facility] and received an abdominal CTs which showed no pathology per the patient. Patient stated that he was started on Carafate and told to continue to take his pantoprazole 40 mg daily and follow-up with a GI specialist. Patient stated that he has an appointment with GI specialist in 2 days but could not wait as his abdominal pain was a 10 out of 10. Patient states that his abdominal pain is continuous. Patient stated that the only abdominal surgery he had was an inguinal hernia repair 30 years ago. Patient denies any recent trauma to the abdomen. Patient denies any recent illnesses. Patient denies any nausea, vomiting, diarrhea, dizziness, syncope, headache, fever or any other acute symptoms. Patient denied any melanic stools. Patient denied any hematochezia, hemoptysis. Patient's vital signs are currently stable. Patient's GCS is 15. After reviewing the patient's records from [facility] in [facility] on 06/18/2024 at 11:28 PM it appears patient has a significant history of GERD, hypertension, pancreatitis, and diverticulitis. CT at this visit showed no acute findings. They did mention that in the note that the patient does see Dr. Flores for GI and is scheduled to see them this week for follow-up. They stated the patient was prescribed sucralfate 1 g tablet they also mentioned in the note that they were suspicious for pancreatitis however the patient was negative via CT or lipase. -Will order a CT of the abdomen and pelvis with IV and oral contrast. Patient stated that he did not receive oral contrast 2 nights ago when he got a CT at another facility. -Will give the patient IV morphine 4 mg once for 10 out of 10 abdominal pain. -Will give the patient IV Protonix 40 mg once. -Will order baseline labs. -[place] [address]. Patient has a thrombocytosis of 720,000. Patient also has an SUZANNA with a creatinine of 1.46. We are giving IV normal saline 1 L bolus for hydration for patient's SUZANNA. -Patient's lipase is elevated at 434. -CT of the abdomen and pelvis showed 1. Abnormal heterogeneous pancreatic tail of unknown etiology. Differential diagnosis includes pancreatitis, ductal dilatation or other neoplastic process. Additional 6 mm hypodense lesion within the pancreatic body. Recommend further evaluation with MRI pancreatic mass protocol. Also correlate with pancreatic enzymes. 2. Mild colonic diverticulosis. 2310: Spoke to the hospitalist at [facility], Artemio Cook NP, who is agreed to accept the patient for acute pancreatitis. Patient is stable at time of admission.
[2024-06-18 22:20] LABS: BILIRUBIN,URINE Negative (NEGATIVE); CLARITY,URINE Clear (CLEAR); COLOR,URINE Yellow (YELLOW); GLUCOSE, URINE (UA) Negative (NEGATIVE); KETONES,URINE Negative (NEGATIVE); LEUKOCYTE ESTERASE ,URINE Negative (NEGATIVE); NITRITE,URINE Negative (NEGATIVE); PH,URINE 6.5 (5-9); PROTEIN,URINE Trace (NEGATIVE); URINE, BLOOD Negative (NEGATIVE); UROBILINOGEN,URINE 0.2 (0.2)
[2024-06-18 22:20] LABS: BASOPHILS # (AUTO) 0.1 K/uL (0-0.2); BASOPHILS % (AUTO) 0.5 % (0.0-3.0); EOSINOPHILS # (AUTO) 0.5 K/ul (0.0-0.7); EOSINOPHILS % (AUTO) 3.5 % (0.0-7.0); HEMATOCRIT 42.8 % (42.0-52.0); HEMOGLOBIN 12.5 g/dl (14.0-18.0); IMMATURE GRANULOCYTE # (AUTO) 0.1 (0.0-1.0); IMMATURE GRANULOCYTE % (AUTO) 0.4 % (0.0-5.0); LYMPHOCYTES # (AUTO) 2.6 K/uL (0.60-3.4); LYMPHOCYTES % (AUTO) 18.9 (10.0-50.0); MEAN CORPUSCULAR HEMOGLOBIN 19.3 pg (27.0-31.0); MEAN CORPUSCULAR HGB CONC 29.2 (31.8-35.4); MEAN CORPUSCULAR VOLUME 65.9 fl (80.0-94.0); MONOCYTES # (AUTO) 0.8 K/uL (0.4-2.0); MONOCYTES % (AUTO) 5.6 (0-10); NEUTROPHILS # (AUTO) 9.9 K/ul (2.0-6.9); NEUTROPHILS % (AUTO) 71.1 % (42.2-75.2); PLATELET COUNT 720 10^3/uL (140-440); RDW COEFFICIENT OF VARIATION 21.5 % (11.6-14.8); RED BLOOD COUNT 6.49 10^6/ul (4.70-6.10)
[2024-06-18 22:26] LABS: BACTERIA,URINE TRACE (NOT PRESENT); MUCUS,URINE TRACE (NOT PRESENT); RENAL EPITHELIAL CELLS,URINE 0-2 (NOT PRESENT); URINE RBC, MICROSCOPIC 0-2 (0-2)
[2024-06-18] MEDS: PROTONIX IVP ONE (22:32)
[2024-06-18] MEDS: SODIUM CHLORIDE 1,000 ML IV ONE (22:32)
[2024-06-18] MEDS: MORPHINE 4 MG/ML SYRINGE IVP ONE (22:32)
[2024-06-18 22:33] LABS: ALANINE AMINOTRANSFERASE 25.4 U/L (0-50); ALBUMIN 3.11 g/dL (3.5-5.0); ASPARTATE AMINO TRANSFERASE 41.1 U/L (17-59); BILIRUBIN,TOTAL 0.74 mg/dL (0.2-1.3); BLOOD UREA NITROGEN 15.9 mg/dL (9-20); CALCIUM 8.46 mg/dL (8.4-10.2); CARBON DIOXIDE 19.7 mmol/L (22-30.0); CHLORIDE 103.7 mmol/L (98-107); CREATININE 1.46 mg/dL (0.60-1.10); GLUCOSE 118.9 mg/dL (74-106); POTASSIUM 3.93 mmol/L (3.5-5.1); TOTAL PROTEIN 5.96 g/dL (6.3-8.2)
--- NOTE | 2024-06-18 23:02 | CT ---
EXAM: CT OF THE ABDOMEN PELVIS WITH CONTRAST History: Abdominal pain. Comparison: CT abdomen pelvis 05/23/2017 Technique: Multiplanar CT images through the abdomen pelvis were obtained following administration o f IV contrast. FINDINGS: Motion artifact degrades image quality. Lung bases are clear. No acute osseous abnormali ties. Postsurgical changes of the lumbosacral spine. No gallstones identified by CT. No liver or splenic lesions. Abnormal heterogeneous pancreatic tail is new compared to the prior study. 6 mm low-density lesion within the pancreatic body is also new compared to the prior study. Adrenal glands are unremarkable. No renal masses and no hydronephrosis . No bowel obstruction. No abdominal aortic aneurysm. The appendix is not seen. No bladder wall t hickening. Prostate is not enlarged. No perirectal inflammation and no pathologically enlarged lymp h nodes. Mild colonic diverticulosis Impression: 1. Abnormal heterogeneous pancreatic tail of unknown etiology. Differential diagnosis includes panc reatitis, ductal dilatation or other neoplastic process. Additional 6 mm hypodense lesion within the pancreatic body. Recommend further evaluation with MRI pancreatic mass protocol. Also correlate wi th pancreatic enzymes. 2. Mild colonic diverticulosis All CT scans are performed using dose optimization techniques as appropriate to the performed exam an d include at least one of the following: Automated exposure control, adjustment of the mA and/or kV according t o size, and the use of iterative reconstruction technique.
[2024-06-18 23:09] LABS: AMPHETAMINE SCREEN,URINE NEGATIVE (NEGATIVE); BARBITURATE SCREEN,URINE NEGATIVE (NEGATIVE); BENZODIAZEPINES SCREEN,URINE NEGATIVE (NEGATIVE); CANNABINOID SCREEN,URINE POSITIVE (NEGATIVE); COCAIN SCREEN,URINE NEGATIVE (NEGATIVE); METHADONE URINE SCREEN NEGATIVE (NEGATIVE); METHAMPHETAMINES SCREEN,URINE NEGATIVE (NEGATIVE); OPIATE SCREEN,URINE NEGATIVE (NEGATIVE); OXYCODONE URINE SCREEN NEGATIVE (NEGATIVE); PHENCYCLIDINE SCREEN,URINE NEGATIVE (NEGATIVE); TRICYCLIC ANTIDEPRESSANTS URIN NEGATIVE (NEGATIVE)
[2024-06-18] MEDS ORDERED: DEXTROSE 50%-WATER ABBOJECT IVP PRN (23:16)
[2024-06-18 23:19] LABS: H. PYLORI ANTIBODY NEGATIVE (NEGATIVE)
[2024-06-18] MEDS: DILAUDID 1 MG/ML SYRINGE IVP STA (23:34)
[2024-06-18 23:43] LABS: SARS COV-2 RNA RAPID NAAT NEGATIVE (NEGATIVE)
[2024-06-19] MEDS: D5%-NS-KCL 20 MEQ/L IV SOL 1,000 ML IV SCH (00:20)
[2024-06-19 01:13] VITALS: BMI 26.1
[2024-06-19] MEDS: REGLAN IVP PRN (01:44)
[2024-06-19] MEDS: MORPHINE 4 MG/ML SYRINGE IVP PRN ×2 (02:34→10:44)
[2024-06-19] MEDS: TORADOL IVP PRN (04:32)
[2024-06-19 05:42] LABS: BASOPHILS # (AUTO) 0.1 K/uL (0-0.2); BASOPHILS % (AUTO) 0.5 % (0.0-3.0); EOSINOPHILS # (AUTO) 0.4 K/ul (0.0-0.7); EOSINOPHILS % (AUTO) 3.5 % (0.0-7.0); HEMATOCRIT 41.7 % (42.0-52.0); HEMOGLOBIN 12.3 g/dl (14.0-18.0); IMMATURE GRANULOCYTE # (AUTO) 0.1 (0.0-1.0); IMMATURE GRANULOCYTE % (AUTO) 0.4 % (0.0-5.0); LYMPHOCYTES # (AUTO) 1.8 K/uL (0.60-3.4); LYMPHOCYTES % (AUTO) 15.3 (10.0-50.0); MEAN CORPUSCULAR HEMOGLOBIN 19.3 pg (27.0-31.0); MEAN CORPUSCULAR HGB CONC 29.5 (31.8-35.4); MEAN CORPUSCULAR VOLUME 65.5 fl (80.0-94.0); MONOCYTES # (AUTO) 0.7 K/uL (0.4-2.0); MONOCYTES % (AUTO) 5.6 (0-10); NEUTROPHILS # (AUTO) 8.7 K/ul (2.0-6.9); NEUTROPHILS % (AUTO) 74.7 % (42.2-75.2); PLATELET COUNT 683 10^3/uL (140-440); RDW COEFFICIENT OF VARIATION 21.4 % (11.6-14.8); RED BLOOD COUNT 6.37 10^6/ul (4.70-6.10); WHITE BLOOD COUNT 11.69 K/ul (4.2-10.2)
[2024-06-19 05:53] LABS: ALANINE AMINOTRANSFERASE 24.8 U/L (0-50); ASPARTATE AMINO TRANSFERASE 26.7 U/L (17-59); BILIRUBIN,TOTAL 0.68 mg/dL (0.2-1.3); BLOOD UREA NITROGEN 13.5 mg/dL (9-20); CALCIUM 8.25 mg/dL (8.4-10.2); CARBON DIOXIDE 21.7 mmol/L (22-30.0); CREATININE 1.4 mg/dL (0.60-1.10); GLUCOSE 135.9 mg/dL (74-106); POTASSIUM 4.24 mmol/L (3.5-5.1); SODIUM 136.2 mmol/L (134.5-145); TOTAL PROTEIN 5.76 g/dL (6.3-8.2)
[2024-06-19 08:28] LABS: CHOLESTEROL 98.2 mg/dL (0-200); HDL CHOLESTEROL 15.4 mg/dL (35-60); TRIGLYCERIDES 198.1 mg/dL (0-150)
--- NOTE | 2024-06-19 13:32 | PCM ---
Date of Service Date Seen by Provider: 06/19/24 Time Seen by Provider: 08:45 Admit Day/Time Admission Date: 06/18/24 Reason for Admission Chief Complaint: ABD PAIN X1 WEEK Hospital Provider Hospital Provider: KAREN PAIGE, [facility] [place] Primary Care Physician Primary Care Physician: DON SCHAFER APRN History of Present Illness History of Present Illness: 48 yo male presented to the ER with complaints of abdominal pain x 1 week. He was seen at [facility] in [place] on 06/17 and sent home with no clear answer. CT scan was negative and labs were within normal limits except elevated platelets. Reports he has been nauseated, vomiting, and some episodes of diarrhea. Describes pain in lower abdomen as in being stabbed by a "hot poker". Morphine helps with pain some. Has had hiccups intermittently since the pain started. Has pmh of diverticulitis and pancreatitis in the past with pancreatitis becoming more frequent in the past year. Follows with GI Dr. Flores and has appointment next week. ER CT scan showed hypodense lesion to tail of pancreas with recommendation of MRI to rule out malignant etiology. Lipase >400 Admitted to med/surg observation Case Discussed With Case Discussed With: Patient's case was discussed with the ER Physicians, Dr. Espinosa [facility] Surgical History hernia surgery back surgery Family History Mother Cancer FATHER Heart problem Hypertension Stroke Social History Smoking and tobacco status: Current every day smoker Tobacco type: cigarettes Substance use type: marijuana History of recent travel: No Allergies Allergies Allergy/AdvReac Type Severity Reaction Status Date / Time No Known Allergies Allergy Verified 06/18/24 21:56 Current Medications Home Medications lancets #100 ea 07/18/22 [Rx Confirmed 06/18/24 Last Taken Unknown] rosuvastatin 10 mg tablet See Rx Instructions .Route .COMPLEX #90 tabs 09/19/23 [Rx Confirmed 06/19/24 Last Taken 06/18/24] metformin 850 mg tablet See Rx Instructions .Route .COMPLEX #60 tabs 04/24/24 [Rx Confirmed 10/08/24 Last Taken 06/18/24] lisinopril 40 mg tablet 40 mg PO QDAY 90 days #90 tabs 05/30/24 [Rx Confirmed 06/19/24 Last Taken 06/18/24] pantoprazole 40 mg tablet,delayed release 40 mg PO QDAY #30 tabs 05/30/24 [Rx Confirmed 06/19/24 Last Taken 06/18/24] sucralfate 1 gram tablet 1 g PO 4XD 06/18/24 [History Confirmed 06/19/24 Last Taken 06/18/24] Home Dextrose (Dextrose 50 % In Water 50 Ml Disp.Syrin) 50 ml IVP ONCE PRN; Protocol PRN Reason: Unconscious Hypoglycemia Potassium Chloride/Dextrose/Sod Cl (D5%-Ns-Kcl 20 Meq/L Iv Ada) 1,000 mls @ 100 mls/hr IV .Q10H SUSANA Last Admin: 06/19/24 00:20 Dose: 100 mls/hr Ketorolac Tromethamine (Ketorolac Tromethamine 15 Mg/Ml Vial) 15 mg IVP Q6HR PRN PRN Reason: Pain Stop: 06/23/24 04:15 Last Admin: 06/19/24 12:07 Dose: 15 mg Metoclopramide HCl (Metoclopramide Hcl 10 Mg/2 Ml) 5 mg IVP Q6H PRN PRN Reason: NAUSEA, ABDOMINAL PAIN Last Admin: 06/19/24 08:29 Dose: 5 mg Morphine Sulfate (Morphine Sulfate 4 Mg/Ml Syringe) 4 mg IVP Q3H PRN PRN Reason: Abdominal Pain Last Admin: 06/19/24 10:44 Dose: 4 mg Discontinued Medications Hydromorphone HCl (Hydromorphone Hcl 1 Mg/Ml Syringe) 1 mg IVP ONCE STA Stop: 06/18/24 23:25 Last Admin: 06/18/24 23:34 Dose: 1 mg Sodium Chloride (Sodium Chloride) 1,000 mls @ 1,000 mls/hr IV BOLUS ONE Stop: 06/18/24 23:07 Last Infusion: 06/19/24 00:22 Dose: Infused Morphine Sulfate (Morphine Sulfate 4 Mg/Ml Syringe) 4 mg IVP ONCE ONE Stop: 06/18/24 22:09 Last Admin: 06/18/24 22:32 Dose: 4 mg Morphine Sulfate (Morphine Sulfate 4 Mg/Ml Syringe) 4 mg IVP Q4H PRN PRN Reason: Abdominal Pain Last Admin: 06/19/24 07:19 Dose: 4 mg Pantoprazole Sodium (Pantoprazole Sodium 40 Mg Vial) 40 mg IVP ONCE ONE Stop: 06/18/24 22:11 Last Admin: 06/18/24 22:32 Dose: 40 mg Opioid Naive vs. Tolerant Does Patient Take Opioids?: No Is Patient Opioid Naive?: Yes What is Opioid Naive?: *Opioid Naive implies the patient is not already taking opioids or not chronically receiving opioids on a daily basis. *PRN dosing is not "usually" associated with tolerance. *Patients are at higher risk of over-sedation and aspiration. Is Patient Opioid Tolerant?: No What is Opioid Tolerant?: *Opioid Tolerance implies less than the expected response to an opioid. *Acquired tolerance is defined by the patient taking 60mg of oral morphine daily (or equianalgesic dose of another opioid) for 1 week or more. *Often associated with chronic pain. *May take more than usual dose to achieve desired pain control. Review of Systems Constitutional: Reports No symptoms Head: Reports Normocephalic Eyes: Reports No symptoms Ears: Reports No symptoms Nose: Reports No symptoms Mouth: Reports No symptoms Throat: Reports No symptoms Cardiovascular: Reports No symptoms Respiratory: Reports No symptoms Gastrointestinal: Reports Nausea, Vomiting, Diarrhea and Abdominal pain Genitourinary: Reports No Symptoms Musculoskeletal: Reports No symptoms Endocrine: Reports No symptoms Hematology: Reports No symptoms Immunology: Reports No symptoms Neurological: Reports No symptoms Psychiatric: Reports No symptoms Physical examination Most Recent Vital Signs: Most Recent Vital Signs Temperature 98.6 F 06/19/24 10:00 Temperature Source Temporal Artery Scan 06/19/24 10:00 Temperature Source Infrared 06/18/24 21:48 Pulse Rate 70 06/19/24 10:00 Respiratory Rate 14 06/19/24 10:00 Blood Pressure 176/113 H 06/19/24 10:00 Blood Pressure Mean 134 06/19/24 10:00 Blood Pressure Left Arm 178/126 06/19/24 00:48 Blood Pressure Right Arm 192/114 06/19/24 00:48 Blood Pressure Location Right Arm 06/19/24 10:00 Blood Pressure Position Supine 06/19/24 05:58 O2 Sat by Pulse Oximetry 99 06/19/24 10:00 Oxygen Delivery Method Room Air 06/19/24 13:00 Height 5 ft 10 in 06/19/24 00:48 Weight 82.5 kg 06/19/24 00:48 Telemetry Heart Rate 65 05/24/17 07:00 Appearance: Positive No Apparent Distress and Alert and Oriented x3 Skin: Positive Warm and Good Turgor HEENT: Positive Normocephalic and PERRLA Neck: Positive Supple and Midline Trachea Chest/Lungs: Positive Symmetrical With Equal Breath Sounds, Clear to Auscul tation Bilaterally and Good Air Movement all 4 Lung Lloyd Heart: Positive RRR and Pulses Normal GI/: Positive Soft, Bowel Sounds Normal, No Distention and Tender (LOWER ABDOMEN) Musculoskeletal: Positive Normal Gait and Station Extremities: Positive Intact Peripheral Pulses, Stable Joints Without Laxity and Good ROM in All Joints Neurological: Positive Sensation Intact, Motor intact, Alert, Oriented and Muscle Strength 5/5 in Upper and Lower Extremities Bilaterally Labs This Visit Labs This Visit: Labs This Visit 06/18/24 06/18/24 06/18/24 22:05 22:14 23:15 WBC 13.90 H RBC 6.49 H Hgb 12.5 L Hct 42.8 MCV 65.9 L MCH 19.3 L MCHC 29.2 L RDW Coeff of Katie 21.5 H Plt Count 720 H Immature Gran % (Auto) 0.4 Neut % (Auto) 71.1 Lymph % (Auto) 18.9 [place] % (Auto) 5.6 Eos % (Auto) 3.5 Baso % (Auto) 0.5 Neut # (Auto) 9.9 H Lymph # (Auto) 2.6 [place] # (Auto) 0.8 Eos # (Auto) 0.5 Baso # (Auto) 0.1 Immature Gran # (Auto) 0.1 PT INR Sodium 135.0 Potassium 3.93 Chloride 103.7 Carbon Dioxide 19.7 L Anion Gap 15.53 BUN 15.9 Creatinine 1.46 H Estimated GFR (MDRD) 51.00 BUN/Creatinine Ratio 10.89 Glucose 118.9 H Calcium 8.46 Total Bilirubin 0.74 AST 41.1 ALT 25.4 Alkaline Phosphatase 133.0 H Total Protein 5.96 L Albumin 3.11 L Globulin 2.85 Albumin/Globulin Ratio 1.09 Triglycerides Cholesterol LDL Cholesterol, Calc VLDL Cholesterol HDL Cholesterol Cholesterol/HDL Ratio Lipase 434.0 H Urine Color Yellow Urine Clarity Clear Urine pH 6.5 Ur Specific [place] 1.020 Urine Protein Trace H Urine Glucose (UA) Negative Urine Ketones Negative Urine Blood Negative Urine Nitrite Negative Urine Bilirubin Negative Urine Urobilinogen 0.2 Ur Leukocyte Esterase Negative Urine Microscopic RBC 0-2 Urine Microscopic WBC 2-5 Ur Squamous Epith Cells 5-10 Ur Renal Epithelial Cell 0-2 Urine Bacteria Trace Urine Mucus Trace Urine Opiates Screen Negative Ur Oxycodone Screen Negative Urine Methadone Screen Negative Ur Barbiturates Screen Negative U Tricyclic Antidepress Negative Ur Phencyclidine Scrn Negative Ur Amphetamine Screen Negative U Methamphetamines Scrn Negative U Benzodiazepines Scrn Negative Urine Cocaine Screen Negative U Cannabinoids Screen Positive H H. pylori IgG Antibody Negative SARS CoV-2 RNA Rapid KEVIN Negative 06/19/24 05:16 WBC 11.69 H RBC 6.37 H Hgb 12.3 L Hct 41.7 L MCV 65.5 L MCH 19.3 L MCHC 29.5 L RDW Coeff of Katie 21.4 H Plt Count 683 H Immature Gran % (Auto) 0.4 Neut % (Auto) 74.7 Lymph % (Auto) 15.3 [place] % (Auto) 5.6 Eos % (Auto) 3.5 Baso % (Auto) 0.5 Neut # (Auto) 8.7 H Lymph # (Auto) 1.8 [place] # (Auto) 0.7 Eos # (Auto) 0.4 Baso # (Auto) 0.1 Immature Gran # (Auto) 0.1 PT 11.0 INR 1.06 Sodium 136.2 Potassium 4.24 Chloride 105.0 Carbon Dioxide 21.7 L Anion Gap 13.74 BUN 13.5 Creatinine 1.40 H Estimated GFR (MDRD) 54.00 BUN/Creatinine Ratio 9.64 Glucose 135.9 H Calcium 8.25 L Total Bilirubin 0.68 AST 26.7 ALT 24.8 Alkaline Phosphatase 132.0 H Total Protein 5.76 L Albumin 3.00 L Globulin 2.76 Albumin/Globulin Ratio 1.08 Triglycerides 198.1 H Cholesterol 98.2 LDL Cholesterol, Calc 43 VLDL Cholesterol 40 H HDL Cholesterol 15.4 L Cholesterol/HDL Ratio 6.4 Lipase 550.0 H Urine Color Urine Clarity Urine pH Ur Specific [place] Urine Protein Urine Glucose (UA) Urine Ketones Urine Blood Urine Nitrite Urine Bilirubin Urine Urobilinogen Ur Leukocyte Esterase Urine Microscopic RBC Urine Microscopic WBC Ur Squamous Epith Cells Ur Renal Epithelial Cell Urine Bacteria Urine Mucus Urine Opiates Screen Ur Oxycodone Screen Urine Methadone Screen Ur Barbiturates Screen U Tricyclic Antidepress Ur Phencyclidine Scrn Ur Amphetamine Screen U Methamphetamines Scrn U Benzodiazepines Scrn Urine Cocaine Screen U Cannabinoids Screen H. pylori IgG Antibody SARS CoV-2 RNA Rapid KEVIN Imaging Imaging: EXAM: CT OF THE ABDOMEN PELVIS WITH CONTRAST History: Abdominal pain. Comparison: CT abdomen pelvis 05/23/2017 Technique: Multiplanar CT images through the abdomen pelvis were obtained following administration of IV contrast. FINDINGS: Motion artifact degrades image quality. Lung bases are clear. No acute osseous abnormalities. Postsurgical changes of the lumbosacral spine. No gallstones identified by CT. No liver or splenic lesions. Abnormal heterogeneous pancreatic tail is new compared to the prior study. 6 mm low-density lesion within the pancreatic body is also new compared to the prior study. Adrenal glands are unremarkable. No renal masses and no hydronephrosis. No bowel obstruction. No abdominal aortic aneurysm. The appendix is not seen. No bladder wall thickening. Prostate is not enlarged. No perirectal inflammation and no pathologically enlarged lymph nodes. Mild colonic diverticulosis Impression: 1. Abnormal heterogeneous pancreatic tail of unknown etiology. Differential diagnosis includes pancreatitis, ductal dilatation or other neoplastic process. Additional 6 mm hypodense lesion within the pancreatic body. Recommend further evaluation with MRI pancreatic mass protocol. Also correlate with pancreatic enzymes. 2. Mild colonic diverticulosis Review Statement Review Statement: I have independently reviewed and interpreted the labs/EKGs/imaging that were ordered by the ER provider. I have reviewed all outside records that are available currently in our EMR including imaging/notes/labs from previous visits. Plan Plan: 1. Acute pancreatitis - NPO - will advance diet as lipase decreases and pain improves, D5NS+KCL@100mL/hr, trend lipase, morphine and toradol for pain control 2. Suspect pancreatic neoplasm - awaiting insurance approval for MRI 3. Thrombocytosis - unsure of etiology, concern if related to #2, trend platelets and monitor at this time, will check iron studies and ferritin with am labs 4. Diabetes, type 2 - accuchecks Q6H due to NPO, holding oral agents 5. Hypertension - chronic, continue home medications DVT Prophylaxis: Ambulation Time Spent: Greater than 80 minutes spent with patient, 50% of the time spent with this patient was devoted to counseling and coordination of care. Advanced [facility] Plannin minutes spent discussing advance care planning. Smoking Cessation: 3-10 minutes spent discussing smoking cessation. Disposition: Admit to: Med/Surg Observation Full Code Discussed Plan of Care with Dr. Frantz Griffin. Medications Medication Orders: Medications Ordered Category Date Time Status Dextrose 50 % in Water [Dextrose 50%-Water Abboject] Meds 06/18/24 23:16 Active 50 ml IVP ONCE PRN Ketorolac Tromethamine [Toradol] Meds 06/19/24 04:15 Active 15 mg IVP Q6HR PRN Metoclopramide HCl [Reglan] Meds 06/19/24 01:05 Active 5 mg IVP Q6H PRN Morphine Sulfate [Morphine 4 mg/ml Syringe] Meds 06/19/24 09:38 Active 4 mg IVP Q3H PRN Potassium Chloride/D5-0.9%NaCl [D5%-Ns-KCl 20 Meq/l IV Meds 06/18/24 23:30 Active Ada] 1,000 ml IV 100 mls/hr
[2024-06-19] MEDS: CRESTOR PO SCH (16:05)
[2024-06-19] MEDS: ZESTRIL PO SCH (16:05)
[2024-06-19] MEDS: DILAUDID 1 MG/ML SYRINGE IVP PRN (20:22)
[2024-06-19] MEDS: MELATONIN PO PRN (22:48)
[2024-06-20 06:17] LABS: BASOPHILS % (AUTO) 0.2 % (0.0-3.0); EOSINOPHILS # (AUTO) 0.1 K/ul (0.0-0.7); EOSINOPHILS % (AUTO) 0.5 % (0.0-7.0); HEMATOCRIT 44.8 % (42.0-52.0); HEMOGLOBIN 13.3 g/dl (14.0-18.0); IMMATURE GRANULOCYTE # (AUTO) 0.1 (0.0-1.0); IMMATURE GRANULOCYTE % (AUTO) 0.4 % (0.0-5.0); LYMPHOCYTES # (AUTO) 1.7 K/uL (0.60-3.4); LYMPHOCYTES % (AUTO) 10.1 (10.0-50.0); MEAN CORPUSCULAR HEMOGLOBIN 19.4 pg (27.0-31.0); MEAN CORPUSCULAR HGB CONC 29.7 (31.8-35.4); MEAN CORPUSCULAR VOLUME 65.5 fl (80.0-94.0); MONOCYTES # (AUTO) 1.1 K/uL (0.4-2.0); MONOCYTES % (AUTO) 6.9 (0-10); NEUTROPHILS # (AUTO) 13.4 K/ul (2.0-6.9); NEUTROPHILS % (AUTO) 81.9 % (42.2-75.2); PLATELET COUNT 701 10^3/uL (140-440); RDW COEFFICIENT OF VARIATION 21.8 % (11.6-14.8); RED BLOOD COUNT 6.84 10^6/ul (4.70-6.10); WHITE BLOOD COUNT 16.38 K/ul (4.2-10.2)
[2024-06-20 06:34] LABS: IRON 26.3 ug/dL (49-181)
[2024-06-20 06:36] LABS: ALANINE AMINOTRANSFERASE 24.9 U/L (0-50); ALBUMIN 3.48 g/dL (3.5-5.0); ALKALINE PHOSPHATASE 144.1 U/L (38-126); ASPARTATE AMINO TRANSFERASE 27.7 U/L (17-59); BILIRUBIN,TOTAL 0.77 mg/dL (0.2-1.3); BLOOD UREA NITROGEN 11.4 mg/dL (9-20); CALCIUM 8.63 mg/dL (8.4-10.2); CARBON DIOXIDE 25.2 mmol/L (22-30.0); CHLORIDE 101.3 mmol/L (98-107); CREATININE 1.19 mg/dL (0.60-1.10); GLUCOSE 163.3 mg/dL (74-106); POTASSIUM 3.62 mmol/L (3.5-5.1); SODIUM 136.6 mmol/L (134.5-145); TOTAL PROTEIN 6.4 g/dL (6.3-8.2)
[2024-06-20 06:43] LABS: LIPASE 2435.5 U/L (23-300)
--- NOTE | 2024-06-20 09:46 | MRI ---
EXAM: MRI ABDOMEN WITH AND WITHOUT CONTRAST COMPARISON: CT abdomen pelvis 06/18/2024 HISTORY: Abdominal pain. TECHNIQUE: Multiplanar multisequence MRI of the abdomen before and after administration of IV contras t. MRCP including 3-D MRCP sequence performed. MRCP sequence degraded. FINDINGS: Liver: Liver is enlarged measuring up to 20 cm. Normal contour No hepatic steatosis. No suspicious hepatic lesions. Gallbladder: Distended gallbladder with mild gallbladder wall thickening/pericholecystic fluid. No g allstones. Findings are likely reactive to the adjacent pancreatitis and patient fasting state. Cli nical correlation advised. Bile ducts: Mild intrahepatic biliary ductal dilatation. CBD measures 0.3 cm. Spleen: The spleen is mildly enlarged measuring up to 13.3 cm. Pancreas: Soft tissue stranding and free fluid surrounding the entire pancreas suggestive of acute ed ematous interstitial pancreatitis. Correlation with lab values advised. Few cystic structures in th e pancreatic body and tail measuring up to 1.0 cm (series 10, images 15 and 17), may represent retent ion cysts, pseudocysts or side branch IPMNs. Continued follow-up advised. Top normal main pancreati c duct measuring up to 0.3 cm in the pancreatic head/neck. Mildly dilated main pancreatic duct in th e body measuring up to 0.4 cm. Adrenal glands: Within normal limits. Kidneys: No hydronephrosis. Vessels: The major vessels are patent. Bowel: Normal caliber. Small hiatal hernia. Lymph nodes: No lymphadenopathy. Osseous structures: Degenerative changes. Fusion of the lower lumbar spine. Lower thorax: Within normal limits. Abdominal wall: Within normal limits. Miscellaneous: Free fluid in the mesentery. IMPRESSION: - Findings suggestive of acute/active pancreatitis. Correlation with lab values advised. - Few cystic structures in the pancreatic body and tail measuring up to 1.0 cm, may represent retenti on cysts, pseudocysts or side branch IPMNs. Mildly dilated main pancreatic duct in the body measurin g up to 0.4 cm. Continued follow-up advised. - Distended gallbladder with mild gallbladder wall thickening/pericholecystic fluid. No gallstones. Findings are likely reactive to the adjacent pancreatitis and patient fasting state. Clinical corre lation advised. - Mild intrahepatic biliary ductal dilatation. CBD measures 0.3 cm. No visible choledocholithiasis n oting nondiagnostic MRCP. - Hepatic splenomegaly of unknown clinical significance.
[2024-06-20] MEDS ORDERED: DILAUDID 1 MG/ML SYRINGE IVP PRN (09:53)
[2024-06-20] MEDS: DILAUDID 1 MG/ML SYRINGE IVP PRN (11:03)
--- NOTE | 2024-06-20 11:49 | PCM.PROG ---
Date/Time Seen Date Seen by Provider: 06/20/24 Time Seen by Provider: 08:30 Provider [facility] Chief Complaint Chief Complaint: ABD PAIN X1 WEEK Subjective Subjective: Continued worsening upper abdominal pain. Requiring around the clock pain medications. Objective Appearance: Positive No Apparent Distress and Alert and Oriented x3 Chest/Lungs: Positive Symmetrical With Equal Breath Sounds, Clear to Auscultation Bilaterally and Good Air Movement all 4 Lung Lloyd Heart: Positive RRR and Pulses Normal GI/: Positive Soft, Bowel Sounds Normal, No Distention and Tender Musculoskeletal: Positive Normal Gait and Station Neurological: Positive Sensation Intact, Motor intact, Alert, Oriented and Muscle Strength 5/5 in Upper and Lower Extremities Bilaterally Vital Signs Vital Signs: Vital Signs: Last 24 Hours 06/19/24 12:00 06/19/24 13:00 06/19/24 14:00 Temperature 99.1 F Temperature Source Temporal Artery Scan Pulse Rate 68 Respiratory Rate 20 Blood Pressure 174/109 H Blood Pressure Mean 130 Blood Pressure Location Left Arm Blood Pressure Position O2 Sat by Pulse Oximetry 100 Oxygen Delivery Method Room Air Room Air Room Air 06/19/24 14:00 06/19/24 15:00 06/19/24 16:00 Temperature Temperature Source Pulse Rate Respiratory Rate Blood Pressure Blood Pressure Mean Blood Pressure Location Blood Pressure Position O2 Sat by Pulse Oximetry Oxygen Delivery Method Room Air Room Air Room Air 06/19/24 17:00 06/19/24 18:00 06/19/24 18:00 Temperature 99 F Temperature Source Temporal Artery Scan Pulse Rate 68 Respiratory Rate 24 H Blood Pressure 181/145 H Blood Pressure Mean 157 Blood Pressure Location Blood Pressure Position Supine O2 Sat by Pulse Oximetry 100 Oxygen Delivery Method Room Air Room Air Room Air 06/19/24 19:00 06/19/24 20:00 06/19/24 21:00 Temperature Temperature Source Pulse Rate Respiratory Rate Blood Pressure Blood Pressure Mean Blood Pressure Location Blood Pressure Position O2 Sat by Pulse Oximetry Oxygen Delivery Method Room Air Room Air Room Air 06/19/24 21:23 06/19/24 22:00 06/19/24 22:02 Temperature 98.2 F Temperature Source Temporal Artery Scan Pulse Rate 61 Respiratory Rate 24 H Blood Pressure 196/108 H 186/119 H Blood Pressure Mean 137 141 Blood Pressure Location Left Arm Left Arm Blood Pressure Position Supine Supine O2 Sat by Pulse Oximetry 99 Oxygen Delivery Method Room Air Room Air Room Air 06/19/24 23:00 06/20/24 00:00 06/20/24 01:00 Temperature Temperature Source Pulse Rate Respiratory Rate Blood Pressure Blood Pressure Mean Blood Pressure Location Blood Pressure Position O2 Sat by Pulse Oximetry Oxygen Delivery Method Room Air Room Air Room Air 06/20/24 02:00 06/20/24 03:00 06/20/24 04:00 Temperature Temperature Source Pulse Rate Respiratory Rate Blood Pressure Blood Pressure Mean Blood Pressure Location Blood Pressure Position O2 Sat by Pulse Oximetry Oxygen Delivery Method Room Air Room Air Room Air 06/20/24 05:00 06/20/24 06:00 06/20/24 06:00 Temperature 99 F Temperature Source Temporal Artery Scan Pulse Rate 66 Respiratory Rate 16 Blood Pressure 186/104 H Blood Pressure Mean 131 Blood Pressure Location Left Arm Blood Pressure Position Supine O2 Sat by Pulse Oximetry 99 Oxygen Delivery Method Room Air Room Air Room Air 06/20/24 10:00 Temperature 98.4 F Temperature Source Temporal Artery Scan Pulse Rate 70 Respiratory Rate 23 H Blood Pressure 182/118 H Blood Pressure Mean 139 Blood Pressure Location Right Arm Blood Pressure Position Sitting O2 Sat by Pulse Oximetry 100 Oxygen Delivery Method Room Air Lab Results Lab Results: Lab Results: Last 24 Hours 06/20/24 06:08 WBC 16.38 H RBC 6.84 H Hgb 13.3 L Hct 44.8 MCV 65.5 L MCH 19.4 L MCHC 29.7 L RDW Coeff of Katie 21.8 H Plt Count 701 H Immature Gran % (Auto) 0.4 Neut % (Auto) 81.9 H Lymph % (Auto) 10.1 [place] % (Auto) 6.9 Eos % (Auto) 0.5 Baso % (Auto) 0.2 Neut # (Auto) 13.4 H Lymph # (Auto) 1.7 [place] # (Auto) 1.1 Eos # (Auto) 0.1 Baso # (Auto) 0.0 Immature Gran # (Auto) 0.1 PT 11.0 INR 1.06 Sodium 136.6 Potassium 3.62 Chloride 101.3 Carbon Dioxide 25.2 Anion Gap 13.72 BUN 11.4 Creatinine 1.19 H Estimated GFR (MDRD) 65.00 BUN/Creatinine Ratio 9.57 Glucose 163.3 H Calcium 8.63 Iron 26.3 L TIBC 232 L % Saturation 11 Ferritin 264.00 Total Bilirubin 0.77 AST 27.7 ALT 24.9 Alkaline Phosphatase 144.1 H Total Protein 6.40 Albumin 3.48 L Globulin 2.92 Albumin/Globulin Ratio 1.19 Lipase 2435.5 H Additional Comments Additional Comments: I have independently reviewed and interpreted the labs/EKGs/imaging ordered during this hospital stay. I have reviewed outside records that are available in our EMR that pertain to medical stay including imaging/notes/labs from previous visits. Active Medications Active Medications: Medications Generic Name Dose Route Start Last Admin Trade Name Freq PRN Reason Stop Dose Admin Dextrose 50 ml 06/18/24 23:16 Dextrose 50 % In Water 50 Ml Disp.Syrin IVP ONCE PRN Unconscious Hypoglycemia Protocol Hydralazine HCl 10 mg 06/19/24 18:28 Hydralazine Hcl 20 Mg/Ml Sdv IVP Q6H PRN Hypertension Hydromorphone HCl 1 mg 06/20/24 11:00 06/20/24 11:03 Hydromorphone Hcl 1 Mg/Ml Syringe IVP 1 mg Q2H PRN Administration Pain Potassium Chloride/Dextrose/Sod Cl 1,000 mls @ 100 mls/hr 06/18/24 23:30 06/20/24 03:08 D5%-Ns-Kcl 20 Meq/L Iv Ada IV 100 mls/hr .Q10H SUSANA Administration Ketorolac Tromethamine 15 mg 06/19/24 04:15 06/19/24 22:48 Ketorolac Tromethamine 15 Mg/Ml Vial IVP 06/23/24 04:15 15 mg Q6HR PRN Administration Pain Lisinopril 40 mg 06/19/24 16:00 06/20/24 08:59 Lisinopril 40 Mg Tablet PO 40 mg DAILY SUSANA Administration Melatonin 6 mg 06/19/24 22:16 06/19/24 22:48 Melatonin 3 Mg Tablet PO 6 mg BEDTIME PRN Administration Insomnia Metoclopramide HCl 5 mg 06/19/24 01:05 06/19/24 17:12 Metoclopramide Hcl 10 Mg/2 Ml IVP 5 mg Q6H PRN Administration NAUSEA, ABDOMINAL PAIN Rosuvastatin Calcium 10 mg 06/19/24 16:00 06/20/24 08:59 Rosuvastatin Calcium 10 Mg Tablet PO 10 mg DAILY SUSANA Administration Plan Plan: 1. Acute pancreatitis - NPO - will advance diet as lipase decreases and pain improves, D5NS+KCL@100mL/hr, trend lipase, requiring Dilaudid for pain control 2. Suspect pancreatic neoplasm - Ruled out, MRCP showing cysts/pancreatitis 3. Thrombocytosis - unsure of etiology, trend and monitor, refer to heme upon discharge 4. Diabetes, type 2 - accuchecks Q6H due to NPO, holding oral agents 5. Hypertension - chronic, continue home medications DVT Prophylaxis: Ambulation Review Statement Review Statement: I have personally discussed and reviewed the patient's visit/currently labs/imaging/decision making with Dr. Griffin, my supervising attending. Greater that 50 minutes spent with patient, 50% of the time spent with this patient was devoted to counseling and coordination of care. Additional Comments Additional Comments: EXAM: MRI ABDOMEN WITH AND WITHOUT CONTRAST IMPRESSION: - Findings suggestive of acute/active pancreatitis. Correlation with lab values advised. - Few cystic structures in the pancreatic body and tail measuring up to 1.0 cm, may represent retention cysts, pseudocysts or side branch IPMNs. Mildly dilated main pancreatic duct in the body measuring up to 0.4 cm. Continued follow-up advised. - Distended gallbladder with mild gallbladder wall thickening/pericholecystic fluid. No gallstones. Findings are likely reactive to the adjacent pancreatitis and patient fasting state. Clinical correlation advised. - Mild intrahepatic biliary ductal dilatation. CBD measures 0.3 cm. No visible choledocholithiasis noting nondiagnostic MRCP. - Hepatic splenomegaly of unknown clinical significance.
[2024-06-20] MEDS: NORVASC PO ONE (21:49)
[2024-06-21 05:39] LABS: BASOPHILS # (AUTO) 0.1 K/uL (0-0.2); BASOPHILS % (AUTO) 0.3 % (0.0-3.0); EOSINOPHILS # (AUTO) 0.1 K/ul (0.0-0.7); EOSINOPHILS % (AUTO) 0.8 % (0.0-7.0); HEMATOCRIT 47.8 % (42.0-52.0); HEMOGLOBIN 14.5 g/dl (14.0-18.0); IMMATURE GRANULOCYTE % (AUTO) 0.1 % (0.0-5.0); LYMPHOCYTES # (AUTO) 1.6 K/uL (0.60-3.4); LYMPHOCYTES % (AUTO) 10.9 (10.0-50.0); MEAN CORPUSCULAR HEMOGLOBIN 19.7 pg (27.0-31.0); MEAN CORPUSCULAR HGB CONC 30.3 (31.8-35.4); MONOCYTES % (AUTO) 6.7 (0-10); NEUTROPHILS # (AUTO) 11.7 K/ul (2.0-6.9); NEUTROPHILS % (AUTO) 81.2 % (42.2-75.2); PLATELET COUNT 646 10^3/uL (140-440); RDW COEFFICIENT OF VARIATION 21.7 % (11.6-14.8); RED BLOOD COUNT 7.35 10^6/ul (4.70-6.10); WHITE BLOOD COUNT 14.41 K/ul (4.2-10.2)
[2024-06-21 05:54] LABS: ALANINE AMINOTRANSFERASE 21.1 U/L (0-50); ALBUMIN 3.68 g/dL (3.5-5.0); ALKALINE PHOSPHATASE 160.2 U/L (38-126); ASPARTATE AMINO TRANSFERASE 36.6 U/L (17-59); BILIRUBIN,TOTAL 0.92 mg/dL (0.2-1.3); BLOOD UREA NITROGEN 9.7 mg/dL (9-20); CALCIUM 9.51 mg/dL (8.4-10.2); CARBON DIOXIDE 23.4 mmol/L (22-30.0); CHLORIDE 98.8 mmol/L (98-107); CREATININE 0.99 mg/dL (0.60-1.10); GLUCOSE 159.2 mg/dL (74-106); LIPASE 1107.3 U/L (23-300); POTASSIUM 3.99 mmol/L (3.5-5.1); SODIUM 133.5 mmol/L (134.5-145); TOTAL PROTEIN 6.66 g/dL (6.3-8.2)
[2024-06-21] MEDS: NICODERM 21 MG TD SCH (09:20)
--- NOTE | 2024-06-21 10:05 | PCM.PROG ---
Date/Time Seen Date Seen by Provider: 06/21/24 Time Seen by Provider: 08:50 Provider Provider: KAREN PAIGE, [facility] Chief Complaint Chief Complaint: ABD PAIN X1 WEEK Subjective Subjective: Pain improving. Still requiring around the clock medications. Objective Appearance: Positive No Apparent Distress and Alert and Oriented x3 Chest/Lungs: Positive Symmetrical With Equal Breath Sounds, Clear to Auscultation Bilaterally and Good Air Movement all 4 Lung Lloyd Heart: Positive RRR and Pulses Normal GI/: Positive Soft, Bowel Sounds Normal, No Distention and Tender Musculoskeletal: Positive Normal Gait and Station Neurological: Positive Sensation Intact, Motor intact, Alert, Oriented and Muscle Strength 5/5 in Upper and Lower Extremities Bilaterally Vital Signs Vital Signs: Vital Signs: Last 24 Hours 06/20/24 14:00 06/20/24 17:46 06/20/24 20:00 Temperature 97 F L 99 F Temperature Source Temporal Artery Scan Temporal Artery Scan Pulse Rate 61 65 Pulse Rate [Apical] Respiratory Rate 20 18 Blood Pressure 187/110 H 181/112 H Blood Pressure Mean 135 135 Blood Pressure Location Right Arm Right Arm Blood Pressure Position Sitting Sitting O2 Sat by Pulse Oximetry 99 100 Oxygen Delivery Method Room Air Room Air Room Air 06/20/24 22:00 06/21/24 02:00 06/21/24 05:23 Temperature 98.2 F 98.9 F 99.0 F Temperature Source Temporal Artery Scan Temporal Artery Scan Temporal Artery Scan Pulse Rate 66 89 102 H Pulse Rate [Apical] Respiratory Rate 18 25 H 16 Blood Pressure 169/98 H 208/103 H 182/120 H Blood Pressure Mean 121 138 140 Blood Pressure Location Right Arm Left Arm Right Arm Blood Pressure Position Supine Supine Supine O2 Sat by Pulse Oximetry 97 98 98 Oxygen Delivery Method Room Air Room Air Room Air 06/21/24 08:00 06/21/24 09:55 Temperature 99.4 F Temperature Source Temporal Artery Scan Pulse Rate 83 Pulse Rate [Apical] 88 Respiratory Rate 20 24 H Blood Pressure 187/119 H Blood Pressure Mean 141 Blood Pressure Location Left Arm Blood Pressure Position Supine O2 Sat by Pulse Oximetry 99 Oxygen Delivery Method Room Air Room Air Lab Results Lab Results: Lab Results: Last 24 Hours 06/21/24 05:12 WBC 14.41 H RBC 7.35 H Hgb 14.5 Hct 47.8 MCV 65.0 L MCH 19.7 L MCHC 30.3 L RDW Coeff of Katie 21.7 H Plt Count 646 H Immature Gran % (Auto) 0.1 Neut % (Auto) 81.2 H Lymph % (Auto) 10.9 [place] % (Auto) 6.7 Eos % (Auto) 0.8 Baso % (Auto) 0.3 Neut # (Auto) 11.7 H Lymph # (Auto) 1.6 [place] # (Auto) 1.0 Eos # (Auto) 0.1 Baso # (Auto) 0.1 Immature Gran # (Auto) 0.0 Sodium 133.5 L Potassium 3.99 Chloride 98.8 Carbon Dioxide 23.4 Anion Gap 15.29 BUN 9.7 Creatinine 0.99 Estimated GFR (MDRD) 80.00 BUN/Creatinine Ratio 9.79 Glucose 159.2 H Calcium 9.51 Total Bilirubin 0.92 AST 36.6 ALT 21.1 Alkaline Phosphatase 160.2 H Total Protein 6.66 Albumin 3.68 Globulin 2.98 Albumin/Globulin Ratio 1.23 Lipase 1107.3 H Additional Comments Additional Comments: I have independently reviewed and interpreted the labs/EKGs/imaging ordered during this hospital stay. I have reviewed outside records that are available in our EMR that pertain to medical stay including imaging/notes/labs from previous visits. Active Medications Active Medications: Medications Generic Name Dose Route Start Last Admin Trade Name Freq PRN Reason Stop Dose Admin Dextrose 50 ml 06/18/24 23:16 Dextrose 50 % In Water 50 Ml Disp.Syrin IVP ONCE PRN Unconscious Hypoglycemia Protocol Hydralazine HCl 10 mg 06/19/24 18:28 Hydralazine Hcl 20 Mg/Ml Sdv IVP Q6H PRN Hypertension Potassium Chloride/Dextrose/Sod Cl 1,000 mls @ 100 mls/hr 06/18/24 23:30 06/21/24 01:09 D5%-Ns-Kcl 20 Meq/L Iv Ada IV 100 mls/hr .Q10H SUSANA Administration Ketorolac Tromethamine 15 mg 06/19/24 04:15 06/19/24 22:48 Ketorolac Tromethamine 15 Mg/Ml Vial IVP 06/23/24 04:15 15 mg Q6HR PRN Administration Pain Lisinopril 40 mg 06/19/24 16:00 06/21/24 08:45 Lisinopril 40 Mg Tablet PO 40 mg DAILY SUSANA Administration Melatonin 6 mg 06/19/24 22:16 06/20/24 21:49 Melatonin 3 Mg Tablet PO 6 mg BEDTIME PRN Administration Insomnia Metoclopramide HCl 5 mg 06/19/24 01:05 06/21/24 04:56 Metoclopramide Hcl 10 Mg/2 Ml IVP 5 mg Q6H PRN Administration NAUSEA, ABDOMINAL PAIN Morphine Sulfate 4 mg 06/21/24 09:13 Morphine Sulfate 4 Mg/Ml Syringe IVP Q2H PRN Pain Nicotine 1 patch 06/21/24 09:15 06/21/24 09:20 Nicotine 21 Mg Patch.Td24 TD 1 patch DAILY SUSANA Administration Rosuvastatin Calcium 10 mg 06/19/24 16:00 06/21/24 08:45 Rosuvastatin Calcium 10 Mg Tablet PO 10 mg DAILY SUSANA Administration Plan Plan: 1. Acute pancreatitis - NPO - will advance diet as lipase decreases and pain improves, D5NS+KCL@100mL/hr, lipase down from 2400 to 1100 today, weaning to morphine from dilaudid for pain control 2. Suspect pancreatic neoplasm - Ruled out, MRCP showing cysts/pancreatitis 3. Thrombocytosis - unsure of etiology, trend and monitor, refer to heme upon discharge 4. Diabetes, type 2 - accuchecks Q6H due to NPO, holding oral agents 5. Hypertension - chronic, continue home medications DVT Prophylaxis: Ambulation Review Statement Review Statement: I have personally discussed and reviewed the patient's visit/currently labs/imaging/decision making with Dr. Griffin, my supervising attending. Greater that 50 minutes spent with patient, 50% of the time spent with this patient was devoted to counseling and coordination of care.
[2024-06-21] MEDS: MORPHINE 4 MG/ML SYRINGE IVP PRN (10:31)
[2024-06-21] MEDS: HYDRALAZINE HCL IVP PRN (18:30)
[2024-06-21] MEDS: NORVASC PO SCH (20:54)
[2024-06-22 05:53] LABS: BASOPHILS # (AUTO) 0.1 K/uL (0-0.2); BASOPHILS % (AUTO) 0.3 % (0.0-3.0); EOSINOPHILS # (AUTO) 0.2 K/ul (0.0-0.7); HEMATOCRIT 45.5 % (42.0-52.0); HEMOGLOBIN 13.8 g/dl (14.0-18.0); IMMATURE GRANULOCYTE % (AUTO) 0.2 % (0.0-5.0); LYMPHOCYTES # (AUTO) 1.6 K/uL (0.60-3.4); LYMPHOCYTES % (AUTO) 9.2 (10.0-50.0); MEAN CORPUSCULAR HEMOGLOBIN 19.5 pg (27.0-31.0); MEAN CORPUSCULAR HGB CONC 30.3 (31.8-35.4); MEAN CORPUSCULAR VOLUME 64.2 fl (80.0-94.0); MONOCYTES # (AUTO) 1.2 K/uL (0.4-2.0); MONOCYTES % (AUTO) 6.7 (0-10); NEUTROPHILS # (AUTO) 14.5 K/ul (2.0-6.9); NEUTROPHILS % (AUTO) 82.6 % (42.2-75.2); PLATELET COUNT 635 10^3/uL (140-440); RDW COEFFICIENT OF VARIATION 21.8 % (11.6-14.8); RED BLOOD COUNT 7.09 10^6/ul (4.70-6.10); WHITE BLOOD COUNT 17.51 K/ul (4.2-10.2)
[2024-06-22 06:02] LABS: ALANINE AMINOTRANSFERASE 20.3 U/L (0-50); ALBUMIN 3.39 g/dL (3.5-5.0); ALKALINE PHOSPHATASE 145.6 U/L (38-126); ASPARTATE AMINO TRANSFERASE 26.6 U/L (17-59); BILIRUBIN,TOTAL 1.02 mg/dL (0.2-1.3); BLOOD UREA NITROGEN 14.1 mg/dL (9-20); CALCIUM 9.04 mg/dL (8.4-10.2); CARBON DIOXIDE 19.4 mmol/L (22-30.0); CHLORIDE 100.8 mmol/L (98-107); CREATININE 1.11 mg/dL (0.60-1.10); GLUCOSE 154.6 mg/dL (74-106); LIPASE 815.5 U/L (23-300); POTASSIUM 3.76 mmol/L (3.5-5.1); SODIUM 131.7 mmol/L (134.5-145); TOTAL PROTEIN 6.38 g/dL (6.3-8.2)
[2024-06-22] MEDS ORDERED: MORPHINE 4 MG/ML SYRINGE IVP PRN (09:58)
[2024-06-22] MEDS: NORCO 7.5-325 PO PRN (10:05)
--- NOTE | 2024-06-22 11:28 | PCM.PROG ---
Date/Time Seen Date Seen by Provider: 06/22/24 Time Seen by Provider: 09:00 Provider [facility] Chief Complaint Chief Complaint: ABD PAIN X1 WEEK Subjective Subjective: Pain mildly improving. Reported to provider would like to try to wean to oral medication in hopes that pain will be better controlled for a longer amount of time. Agreeable to this plan. Then, frequently calls out to nurses and wanting to know medication times and fixated on when he can have more medications after discussing weaning off of the m. Objective Appearance: Positive No Apparent Distress and Alert and Oriented x3 Chest/Lungs: Positive Symmetrical With Equal Breath Sounds, Clear to Auscultation Bilaterally and Good Air Movement all 4 Lung Lloyd Heart: Positive RRR and Pulses Normal GI/: Positive Soft, Bowel Sounds Normal, No Distention and Tender Musculoskeletal: Positive Normal Gait and Station Neurological: Positive Sensation Intact, Motor intact, Alert, Oriented and Muscle Strength 5/5 in Upper and Lower Extremities Bilaterally Vital Signs Vital Signs: Vital Signs: Last 24 Hours 06/21/24 13:58 06/21/24 18:00 06/21/24 19:45 Temperature 99 F 99 F 98.9 F Temperature Source Temporal Artery Scan Temporal Artery Scan Temporal Artery Scan Pulse Rate 95 100 104 H Respiratory Rate 20 20 18 Blood Pressure 172/122 H 168/110 H 173/106 H Blood Pressure Mean 138 129 128 Blood Pressure Location Left Arm Left Arm Left Arm Blood Pressure Position Supine Supine Supine O2 Sat by Pulse Oximetry 99 100 99 Oxygen Delivery Method Room Air Room Air Room Air 06/21/24 20:00 06/21/24 21:59 06/22/24 01:42 Temperature 99.4 F 99.2 F Temperature Source Temporal Artery Scan Temporal Artery Scan Pulse Rate 111 H 122 H Respiratory Rate 18 18 Blood Pressure 176/118 H 175/118 H Blood Pressure Mean 137 137 Blood Pressure Location Left Arm Right Arm Blood Pressure Position Supine Sitting O2 Sat by Pulse Oximetry 98 99 Oxygen Delivery Method Room Air Room Air Room Air 06/22/24 02:48 06/22/24 05:03 06/22/24 08:00 Temperature 99.0 F Temperature Source Oral Pulse Rate 119 H Respiratory Rate 20 Blood Pressure 174/110 H 145/107 H Blood Pressure Mean 131 119 Blood Pressure Location Left Arm Left Arm Blood Pressure Position Supine Supine O2 Sat by Pulse Oximetry 99 Oxygen Delivery Method Room Air Room Air Room Air 06/22/24 09:51 Temperature 98.6 F Temperature Source Temporal Artery Scan Pulse Rate 97 Respiratory Rate 19 Blood Pressure 158/104 H Blood Pressure Mean 122 Blood Pressure Location Left Arm Blood Pressure Position Sitting O2 Sat by Pulse Oximetry 99 Oxygen Delivery Method Room Air Lab Results Lab Results: Lab Results: Last 24 Hours 06/22/24 05:16 WBC 17.51 H RBC 7.09 H Hgb 13.8 L Hct 45.5 MCV 64.2 L MCH 19.5 L MCHC 30.3 L RDW Coeff of Katie 21.8 H Plt Count 635 H Immature Gran % (Auto) 0.2 Neut % (Auto) 82.6 H Lymph % (Auto) 9.2 L [place] % (Auto) 6.7 Eos % (Auto) 1.0 Baso % (Auto) 0.3 Neut # (Auto) 14.5 H Lymph # (Auto) 1.6 [place] # (Auto) 1.2 Eos # (Auto) 0.2 Baso # (Auto) 0.1 Immature Gran # (Auto) 0.0 Sodium 131.7 L Potassium 3.76 Chloride 100.8 Carbon Dioxide 19.4 L Anion Gap 15.26 BUN 14.1 Creatinine 1.11 H Estimated GFR (MDRD) 70.00 BUN/Creatinine Ratio 12.70 Glucose 154.6 H Calcium 9.04 Total Bilirubin 1.02 AST 26.6 ALT 20.3 Alkaline Phosphatase 145.6 H Total Protein 6.38 Albumin 3.39 L Globulin 2.99 Albumin/Globulin Ratio 1.13 Lipase 815.5 H Additional Comments Additional Comments: I have independently reviewed and interpreted the labs/EKGs/imaging ordered during this hospital stay. I have reviewed outside records that are available in our EMR that pertain to medical stay including imaging/notes/labs from previous visits. Active Medications Active Medications: Medications Generic Name Dose Route Start Last Admin Trade Name Freq PRN Reason Stop Dose Admin Hydrocodone Bitart/Acetaminophen 1 tab 06/22/24 09:58 06/22/24 10:05 Hydrocodone Bit/Acetaminophen 7.5/325 Mg Tablet PO 1 tab Q4HR PRN Administration Pain Amlodipine Besylate 10 mg 06/21/24 21:00 06/22/24 09:02 Amlodipine Besylate 5 Mg Tablet PO 10 mg BID SUSANA Administration Dextrose 50 ml 06/18/24 23:16 Dextrose 50 % In Water 50 Ml Disp.Syrin IVP ONCE PRN Unconscious Hypoglycemia Protocol Hydralazine HCl 10 mg 06/19/24 18:28 06/22/24 02:48 Hydralazine Hcl 20 Mg/Ml Sdv IVP 10 mg Q6H PRN Administration Hypertension Potassium Chloride/Dextrose/Sod Cl 1,000 mls @ 100 mls/hr 06/18/24 23:30 06/22/24 09:33 D5%-Ns-Kcl 20 Meq/L Iv Ada IV Infused .Q10H SUSANA Infusion Ketorolac Tromethamine 15 mg 06/19/24 04:15 06/22/24 06:02 Ketorolac Tromethamine 15 Mg/Ml Vial IVP 06/23/24 04:15 15 mg Q6HR PRN Administration Pain Lisinopril 40 mg 06/19/24 16:00 06/22/24 09:02 Lisinopril 40 Mg Tablet PO 40 mg DAILY SUSANA Administration Melatonin 6 mg 06/19/24 22:16 06/20/24 21:49 Melatonin 3 Mg Tablet PO 6 mg BEDTIME PRN Administration Insomnia Metoclopramide HCl 5 mg 06/19/24 01:05 06/21/24 23:02 Metoclopramide Hcl 10 Mg/2 Ml IVP 5 mg Q6H PRN Administration NAUSEA, ABDOMINAL PAIN Morphine Sulfate 4 mg 06/22/24 09:58 Morphine Sulfate 4 Mg/Ml Syringe IVP Q4H PRN Pain Nicotine 1 patch 06/21/24 09:15 06/22/24 09:01 Nicotine 21 Mg Patch.Td24 TD 1 patch DAILY SUSANA Administration Rosuvastatin Calcium 10 mg 06/19/24 16:00 06/22/24 09:02 Rosuvastatin Calcium 10 Mg Tablet PO 10 mg DAILY SUSANA Administration Plan Plan: 1. Acute pancreatitis - no vomiting or nausea - will attempt to advance diet as tolerated starting with clears, D5NS+KCL@100mL/hr, lipase down from 1100 to 814 today, weaning to norco Q6H and morphine Q4H for pain control 2. Suspect pancreatic neoplasm - Ruled out, MRCP showing cysts/pancreatitis 3. Thrombocytosis - unsure of etiology, trend and monitor, refer to heme upon discharge 4. Diabetes, type 2 - accuchecks Q6H due to NPO, holding oral agents 5. Hypertension - chronic, continue home medications DVT Prophylaxis: Ambulation Dispo: Anticipate patient being able to eat and drink as soon as lipase decreases. Still requiring IV fluids and pain medication at this time. Review Statement Review Statement: I have personally discussed and reviewed the patient's visit/currently labs/imaging/decision making with Dr. Griffin, my supervising attending. Greater that 50 minutes spent with patient, 50% of the time spent with this patient was devoted to counseling and coordination of care.
[2024-06-22] MEDS: THIAMINE PO SCH (14:10)
[2024-06-22] MEDS: FOLIC ACID PO SCH (14:10)
[2024-06-23 02:36] VITALS: PULSE 98
[2024-06-23 05:22] VITALS: BP 143/93; RESP 18; TEMP 98.7
[2024-06-23 05:45] LABS: BASOPHILS # (AUTO) 0.1 K/uL (0-0.2); BASOPHILS % (AUTO) 0.5 % (0.0-3.0); EOSINOPHILS # (AUTO) 0.4 K/ul (0.0-0.7); EOSINOPHILS % (AUTO) 3.6 % (0.0-7.0); HEMATOCRIT 44.4 % (42.0-52.0); HEMOGLOBIN 13.4 g/dl (14.0-18.0); IMMATURE GRANULOCYTE % (AUTO) 0.2 % (0.0-5.0); LYMPHOCYTES # (AUTO) 1.6 K/uL (0.60-3.4); LYMPHOCYTES % (AUTO) 14.4 (10.0-50.0); MEAN CORPUSCULAR HEMOGLOBIN 19.4 pg (27.0-31.0); MEAN CORPUSCULAR HGB CONC 30.2 (31.8-35.4); MEAN CORPUSCULAR VOLUME 64.3 fl (80.0-94.0); MONOCYTES # (AUTO) 0.7 K/uL (0.4-2.0); MONOCYTES % (AUTO) 6.6 (0-10); NEUTROPHILS # (AUTO) 8.2 K/ul (2.0-6.9); NEUTROPHILS % (AUTO) 74.7 % (42.2-75.2); PLATELET COUNT 538 10^3/uL (140-440); RDW COEFFICIENT OF VARIATION 21.5 % (11.6-14.8)
[2024-06-23 05:46] LABS: WHITE BLOOD COUNT 10.96 K/ul (4.2-10.2)
[2024-06-23 05:57] LABS: ALANINE AMINOTRANSFERASE 20.9 U/L (0-50); ALBUMIN 3.31 g/dL (3.5-5.0); ALKALINE PHOSPHATASE 131.5 U/L (38-126); ASPARTATE AMINO TRANSFERASE 35.8 U/L (17-59); BILIRUBIN,TOTAL 0.9 mg/dL (0.2-1.3); BLOOD UREA NITROGEN 14.1 mg/dL (9-20); CALCIUM 8.8 mg/dL (8.4-10.2); CARBON DIOXIDE 19.5 mmol/L (22-30.0); CREATININE 1.04 mg/dL (0.60-1.10); GLUCOSE 152.2 mg/dL (74-106); LIPASE 855.5 U/L (23-300); POTASSIUM 3.67 mmol/L (3.5-5.1); SODIUM 131.4 mmol/L (134.5-145); TOTAL PROTEIN 6.19 g/dL (6.3-8.2)
--- NOTE | 2024-06-23 08:57 | DCSUM ---
Admission Date Admission Date: 06/18/24 Discharge Date Discharge Date: 06/23/24 Admission Diagnosis Admission Diagnosis: 1. Acute pancreatitis 2. Suspect pancreatic neoplasm 3. Thrombocytosis 4. Diabetes, type 2 5. Hypertension Discharge Diagnosis Discharge Diagnosis: 1. Acute pancreatitis - Improving 2. Suspect pancreatic neoplasm - Ruled out, MRCP showing cysts/pancreatitis 3. Thrombocytosis - chronic, has never seen heme, recommend referral from PCP 4. Diabetes, type 2 - chronic, stable 5. Hypertension - chronic, uncontrolled, adjusted medications during stay Hospital Provider Hospital Provider: KAREN PAIGE, [facility] Primary Care Physician Primary Care Physician: DON SCHAFER APRN Summary of History and Physical Summary of History and Physical: 48 yo male presented to the ER with complaints of abdominal pain x 1 week. He was seen at [facility] in [place] on 06/17 and sent home with no clear answer. CT scan was negative and labs were within normal limits except elevated platelets. Reports he has been nauseated, vomiting, and some episodes of diarrhea. Describes pain in lower abdomen as in being stabbed by a "hot poker". Morphine helps with pain some. Has had hiccups intermittently since the pain started. Has pmh of diverticulitis and pancreatitis in the past with pancreatitis becoming more frequent in the past year. Follows with GI Dr. Flores and has appointment next week. ER CT scan showed hypodense lesion to tail of pancreas with recommendation of MRI to rule out malignant etiology. Lipase >400 Admitted to med/surg observation Hospital Course Subjective: During stay, patient was treated for pancreatitis. Initial CT scan showed concern for neoplasm and recommended MRI. Patient lipase increased from >400 to 2500. MRI showed some cysts and pancreatitis. No neoplasm noted. Patient required pain medications around the clock as ordered including morphine initially, increased to dilaudid. Once lipase began trending down, began weaning off of pain medication. Tolerated norco yesterday with clear liquid diet without nausea and vomiting. BP was elevated due to pain and uncontrollable. Decreased with switch from lisinopril to norvasc. Also of note thrombocytosis noted throughout stay, patient reports he has been told he needs to give blood. Never seen hematology. Recommend referral to heme at PCP appointment. No further changes to home medications. VSS. Follow-up with PCP next week. Appearance: Pleasant, No Apparent Distress and Alert HEENT: MMM, Supple and No JVD CVS: No Murmur, No Rubs and No Gallop Abdomen: Soft, Non-Tender and No Distention Respiratory: No Dyspnea Extremities: No Edema Vital Signs: Most Recent Vital Signs Temperature 98.7 F 06/23/24 05:21 Temperature Source Oral 06/23/24 05:21 Temperature Source Infrared 06/18/24 21:48 Pulse Rate 98 06/23/24 05:21 Respiratory Rate 18 06/23/24 05:21 Blood Pressure 143/93 H 06/23/24 05:21 Blood Pressure Mean 109 06/23/24 05:21 Blood Pressure Left Arm 178/126 06/19/24 00:48 Blood Pressure Right Arm 192/114 06/19/24 00:48 Blood Pressure Location Left Arm 06/23/24 05:21 Blood Pressure Position Supine 06/23/24 05:21 O2 Sat by Pulse Oximetry 96 06/23/24 05:21 Oxygen Delivery Method Room Air 06/23/24 05:21 Height 5 ft 10 in 06/19/24 00:48 Weight 82.5 kg 06/19/24 00:48 Telemetry Heart Rate 65 05/24/17 07:00 Imaging: EXAM: CT OF THE ABDOMEN PELVIS WITH CONTRAST History: Abdominal pain. Comparison: CT abdomen pelvis 05/23/2017 Technique: Multiplanar CT images through the abdomen pelvis were obtained following administration of IV contrast. FINDINGS: Motion artifact degrades image quality. Lung bases are clear. No acute osseous abnormalities. Postsurgical changes of the lumbosacral spine. No gallstones identified by CT. No liver or splenic lesions. Abnormal heterogeneous pancreatic tail is new compared to the prior study. 6 mm low- density lesion within the pancreatic body is also new compared to the prior study. Adrenal glands are unremarkable. No renal masses and no hydronephrosis. No bowel obstruction. No abdominal aortic aneurysm. The appendix is not seen. No bladder wall thickening. Prostate is not enlarged. No perirectal inflammation and no pathologically enlarged lymph nodes. Mild colonic diverticulosis Impression: 1. Abnormal heterogeneous pancreatic tail of unknown etiology. Differential diagnosis includes pancreatitis, ductal dilatation or other neoplastic process. Additional 6 mm hypodense lesion within the pancreatic body. Recommend further evaluation with MRI pancreatic mass protocol. Also correlate with pancreatic enzymes. 2. Mild colonic diverticulosis EXAM: MRI ABDOMEN WITH AND WITHOUT CONTRAST COMPARISON: CT abdomen pelvis 06/18/2024 HISTORY: Abdominal pain. TECHNIQUE: Multiplanar multisequence MRI of the abdomen before and after administration of IV contrast. MRCP including 3-D MRCP sequence performed. MRCP sequence degraded. FINDINGS: Liver: Liver is enlarged measuring up to 20 cm. Normal contour No hepatic steatosis. No suspicious hepatic lesions. Gallbladder: Distended gallbladder with mild gallbladder wall thickening/pericholecystic fluid. No gallstones. Findings are likely reactive to the adjacent pancreatitis and patient fasting state. Clinical correlation advised. Bile ducts: Mild intrahepatic biliary ductal dilatation. CBD measures 0.3 cm. Spleen: The spleen is mildly enlarged measuring up to 13.3 cm. Pancreas: Soft tissue stranding and free fluid surrounding the entire pancreas suggestive of acute edematous interstitial pancreatitis. Correlation with lab values advised. Few cystic structures in the pancreatic body and tail measuring up to 1.0 cm (series 10, images 15 and 17), may represent retention cysts, pseudocysts or side branch IPMNs. Continued follow-up advised. Top normal main pancreatic duct measuring up to 0.3 cm in the pancreatic head/neck. Mildly dilated main pancreatic duct in the body measuring up to 0.4 cm. Adrenal glands: Within normal limits. Kidneys: No hydronephrosis. Vessels: The major vessels are patent. Bowel: Normal caliber. Small hiatal hernia. Lymph nodes: No lymphadenopathy. Osseous structures: Degenerative changes. Fusion of the lower lumbar spine. Lower thorax: Within normal limits. Abdominal wall: Within normal limits. Miscellaneous: Free fluid in the mesentery. IMPRESSION: - Findings suggestive of acute/active pancreatitis. Correlation with lab values advised. - Few cystic structures in the pancreatic body and tail measuring up to 1.0 cm, may represent retention cysts, pseudocysts or side branch IPMNs. Mildly dilated main pancreatic duct in the body measuring up to 0.4 cm. Continued follow-up advised. - Distended gallbladder with mild gallbladder wall thickening/pericholecystic fluid. No gallstones. Findings are likely reactive to the adjacent pancreatitis and patient fasting state. Clinical correlation advised. - Mild intrahepatic biliary ductal dilatation. CBD measures 0.3 cm. No visible choledocholithiasis noting nondiagnostic MRCP. - Hepatic splenomegaly of unknown clinical significance. Lab Results Last 24 Hours: 06/23/24 05:34 WBC 10.96 H D RBC 6.90 H Hgb 13.4 L Hct 44.4 MCV 64.3 L MCH 19.4 L MCHC 30.2 L RDW Coeff of Katie 21.5 H Plt Count 538 H Immature Gran % (Auto) 0.2 Neut % (Auto) 74.7 Lymph % (Auto) 14.4 [place] % (Auto) 6.6 Eos % (Auto) 3.6 Baso % (Auto) 0.5 Neut # (Auto) 8.2 H Lymph # (Auto) 1.6 [place] # (Auto) 0.7 Eos # (Auto) 0.4 Baso # (Auto) 0.1 Immature Gran # (Auto) 0.0 Sodium 131.4 L Potassium 3.67 Chloride 101.0 Carbon Dioxide 19.5 L Anion Gap 14.57 BUN 14.1 Creatinine 1.04 Estimated GFR (MDRD) 76.00 BUN/Creatinine Ratio 13.55 Glucose 152.2 H Calcium 8.80 Total Bilirubin 0.90 AST 35.8 ALT 20.9 Alkaline Phosphatase 131.5 H Total Protein 6.19 L Albumin 3.31 L Globulin 2.88 Albumin/Globulin Ratio 1.14 Lipase 855.5 H Discharge Instructions Discharge Planning: Discharge Planning > 40 minutes If patient is discharged with left ventricular systolic dysfunction: NA Discharged with a beta ana? [] If no, why not? [] Discharged with an reagan/arb? [] If no, why not? [] Diagnosis: Pancreatitis Diet: [place], advance as tolerated Activity as tolerated Follow-up with PCP next week. Medications: Emily 7.5/325 Q6H prn Norvasc 5 mg twice a day - for high blood pressure Stop taking lisinopril Discharge Medications: Medications at Discharge (Home Meds & RX) lancets #100 ea 07/18/22 rosuvastatin 10 mg tablet See Rx Instructions .Route .COMPLEX #90 tabs 09/19/23 metformin 850 mg tablet See Rx Instructions .Route .COMPLEX #60 tabs 04/24/24 lisinopril 40 mg tablet 40 mg PO QDAY 90 days #90 tabs 05/30/24 pantoprazole 40 mg tablet,delayed release 40 mg PO QDAY #30 tabs 05/30/24 sucralfate 1 gram tablet 1 g PO 4XD 06/18/24 Discharge Plan Discharge Discharge Orders: Discharge Patient (ONCE); Ordered 06/23/24 Ordered By: BONI CHENG Activity Restrictions/Additional Instructions: Diagnosis: Pancreatitis Diet: [place], advance as tolerated Activity as tolerated Follow-up with PCP next week. Medications: Emily 7.5/325 Q6H prn Norvasc 5 mg twice a day - for high blood pressure Stop taking lisinopril Instructions: Pancreatitis (GEN) Patient Disposition: HOME SELF-CARE Prescriptions: New hydrocodone-acetaminophen 7.5-325 mg Tablet 1 tab PO Q6HR PRN (Reason: pain) Qty: 16 0RF amlodipine 5 mg Tablet 10 mg PO BID Qty: 60 0RF Continued rosuvastatin 10 mg tablet See Rx Instructions .ROUTE .COMPLEX Qty: 90 2RF Dose Instruction: TAKE ONE TABLET DAILY Rx Instructions: TAKE ONE TABLET DAILY metformin 850 mg tablet See Rx Instructions .ROUTE .COMPLEX Qty: 60 2RF Dose Instruction: TAKE ONE TABLET TWICE DAILY Rx Instructions: TAKE ONE TABLET TWICE DAILY sucralfate 1 gram tablet 1 g PO 4XD pantoprazole 40 mg tablet,delayed release (DR/EC) 40 mg PO QDAY Qty: 30 2RF Discontinued lisinopril 40 mg tablet 40 mg PO QDAY 90 Days Qty: 90 1RF No Action (DME) lancets Misc See Rx Instructions .ROUTE Qty: 100 0RF Rx Instructions: As directed Did you review [place] SUPERINTENDENT OF GENERATION for ALL controlled substances?: No Discussed opioids are addictive and Narcan is available by prescription or from pharmacy.: No Condition: Stable Referrals: DON SCHAFER APRN [Primary Care Provider] - 06/27/24 10:45 am
== END 2024-06-23 09:50 | disposition home or self-care (01) | DRG 439 ==
LOC: ED 21:47 → MEDSURG B 21:47
PROVIDERS: ADMIT Hospitalist; ATTEND Nurse Practitioner Family

== ENCOUNTER 2024-07-01 09:34 | Observation (INO) ==
--- NOTE | 2024-07-01 10:12 | ED.PDOC ---
General ED Provider: Dr. GRAEME SORIA MD Chief Complaint: Abdominal Pain Stated Complaint: Abdominal pain Time Seen by Provider: 07/01/24 10:10 Information Source: Patient Primary Care Provider: DON SCHAFER APRN Nursing and Triage Documentation Reviewed and Agree: Yes What is Opioid Naive?: *Opioid Naive implies the patient is not already taking opioids or not chronically receiving opioids on a daily basis. *PRN dosing is not "usually" associated with tolerance. *Patients are at higher risk of over-sedation and aspiration. What is Opioid Tolerant?: *Opioid Tolerance implies less than the expected response to an opioid. *Acquired tolerance is defined by the patient taking 60mg of oral morphine daily (or equianalgesic dose of another opioid) for 1 week or more. *Often associated with chronic pain. *May take more than usual dose to achieve desired pain control. GI Complaint Exam Abdominal Pain Complaint/Exam Onset: Gradual Duration: 1 day Symptoms Are: Still present Timing: Constant Initial Severity: Moderate Current Severity: Severe Location of Pain: Discrete (Upper abdomen) Character: Reports Burning Aggravating: Reports Movement Alleviating: Reports None Related History: Reports Similar episode (2 weeks ago) AAA Risk Factors: Reports None Cardiac Risk Factors: Reports None Testicular Torsion Risk Factors: Reports None Surgical Obstruction Risk Factors: Reports None Related Surgical History: Reports None Abdominal Findings: Present CVA Tenderness Differential Diagnoses: Gastroenteritis and Pancreatitis Review of Systems Review Of Systems Constitutional: Reports No symptoms Eyes: Reports No symptoms Ears, Nose, Mouth, Throat: Reports No symptoms Respiratory: Reports No symptoms Cardiac: Reports No symptoms GI: Reports Abdominal pain : Reports No symptoms Musculoskeletal: Reports No symptoms Skin: Reports No symptoms Neurological: Reports No symptoms Endocrine: Reports No symptoms Hematologic/Lymphatic: Reports No symptoms All Other Systems: Reviewed and Negative PFSH Family History Mother Cancer FATHER Heart problem Hypertension Stroke Social History Smoking and tobacco status: Current every day smoker Tobacco type: cigarettes Substance use type: marijuana History of recent travel: No Surgical History hernia surgery back surgery Physical Exam Physical Exam Appearance: Reports Well-appearing, No pain distress and Well-nourished Ill-appearing: None Pain Distress: None Respiratory: Reports Airway patent, Breath sounds clear, Breath sounds equal and Respirations nonlabored Cardiovascular: Reports RRR and No murmur GI/: Reports Soft, Bowel sounds normal and Tender Musculoskeletal: Reports ROM intact Neurological: Reports Sensation intact, Motor intact, Cranial nerves intact, Alert and Oriented Psychiatric: Reports Affect appropriate and Mood appropriate Course Course 07/01/24 10:40 07/01/24 10:40 Orders, Labs, Meds: Lab Review 07/01/24 07/01/24 10:40 11:56 WBC 6.72 RBC 6.47 H Hgb 12.9 L Hct 43.5 MCV 67.2 L MCH 19.9 L MCHC 29.7 L RDW Coeff of Katie 23.5 H Plt Count 414 Immature Gran % (Auto) 0.3 Neut % (Auto) 48.6 Lymph % (Auto) 37.1 [place] % (Auto) 7.1 Eos % (Auto) 6.0 Baso % (Auto) 0.9 Neut # (Auto) 3.3 Lymph # (Auto) 2.5 [place] # (Auto) 0.5 Eos # (Auto) 0.4 Baso # (Auto) 0.1 Immature Gran # (Auto) 0.0 Sodium 132.5 L Potassium 4.48 Chloride 102.8 Carbon Dioxide 20.5 L Anion Gap 13.68 BUN 14.9 Creatinine 1.35 H Estimated GFR (MDRD) 56.00 BUN/Creatinine Ratio 11.03 Glucose 141.1 H Calcium 8.48 Total Bilirubin 0.43 AST 72.9 H ALT 125.6 H Alkaline Phosphatase 112.9 Total Protein 5.73 L Albumin 3.07 L Globulin 2.66 Albumin/Globulin Ratio 1.15 Lipase 1098.0 H SARS CoV-2 RNA Rapid KEVIN Negative Orders Category Date Time Status ADMIT OBSERVATION [PLACE PATIENT OBSERVATION] .TO ADMISSION 07/01/24 11:47 Active MEDSURG (NON-MONITORED BED) ACTIVITY .Up ad Parul CARE 07/01/24 11:53 Active BLOOD GLUCOSE MONITORING (MED/SURG) ACCUCHECK Q6H CARE 07/01/24 11:53 Active INTAKE & OUTPUT Q8HR CARE 07/01/24 11:53 Active IP: INSERT SALINE LOCK ONCE CARE 07/01/24 10:25 Active VITAL SIGNS Q4HR CARE 07/01/24 11:54 Active NOTHING BY MOUTH DIETARY 07/01/24 Lunch Ordered CBC W/ AUTO DIFF DAILY@0600 LAB 07/02/24 06:00 Ordered CBC W/ AUTO DIFF DAILY@0600 LAB 07/03/24 06:00 Ordered CBC W/ AUTO DIFF Stat LAB 07/01/24 10:40 Completed CMP [COMPREHENSIVE METABOLIC PANEL] Stat LAB 07/01/24 10:40 Completed COMPREHENSIVE METABOLIC PANEL DAILY@0600 LAB 07/02/24 06:00 Ordered COMPREHENSIVE METABOLIC PANEL DAILY@0600 LAB 07/03/24 06:00 Ordered COVID [SARS COV-2 RNA RAPID KEVIN] Stat LAB 07/01/24 11:56 Completed LIPASE DAILY@0600 LAB 07/02/24 06:00 Ordered LIPASE DAILY@0600 LAB 07/03/24 06:00 Ordered LIPASE Stat LAB 07/01/24 10:40 Completed Morphine Sulfate [Morphine 2 mg/ml Syringe] Meds 07/01/24 11:53 Active 2 mg IVP Q4HR PRN Morphine Sulfate [Morphine 4 mg/ml Syringe] Meds 07/01/24 11:45 Discontinued 2 mg IVP ONCE ONE Morphine Sulfate [Morphine 4 mg/ml Syringe] Meds 07/01/24 10:25 Discontinued 4 mg IVP ONCE ONE Pantoprazole Sodium [Protonix] Meds 07/01/24 11:55 Active 40 mg IVP DAILY Sodium Chloride 0.9% [Sodium Chloride] 1,000 ml Meds 07/01/24 12:00 Active IV 250 mls/hr Sodium Chloride 0.9% [Sodium Chloride] 1,000 ml Meds 07/01/24 11:[address] ABDOMEN/PELVIS WO CONTRAST Stat RADS 07/01/24 10:25 Completed Medications Generic Name Dose Route Start Last Admin Trade Name Freq PRN Reason Stop Dose Admin Sodium Chloride 1,000 mls @ 1,000 mls/hr 07/01/24 11:22 Sodium Chloride IV 07/01/24 12:21 BOLUS STA Sodium Chloride 1,000 mls @ 250 mls/hr 07/01/24 12:00 Sodium Chloride IV .Q4H SUSANA Morphine Sulfate 2 mg 07/01/24 11:53 Morphine Sulfate 2 Mg/Ml Syringe IVP Q4HR PRN MODERATE PAIN Pantoprazole Sodium 40 mg 07/01/24 11:55 Pantoprazole Sodium 40 Mg Vial IVP DAILY SUSANA Discontinued Medications Generic Name Dose Route Start Last Admin Trade Name Katherine PRN Reason Stop Dose Admin Morphine Sulfate 4 mg 07/01/24 10:25 07/01/24 11:01 Morphine Sulfate 4 Mg/Ml Syringe IVP 07/01/24 10:26 4 mg ONCE ONE Administration Morphine Sulfate 2 mg 07/01/24 11:45 Morphine Sulfate 4 Mg/Ml Syringe IVP 07/01/24 11:46 ONCE ONE Vital Signs: Temp Pulse Resp BP Pulse Ox 07/01/24 09:40 97.6 F 74 18 126/80 100 Discharge Plan Discharge Patient Disposition: ADMITTED INPATIENT Discharge Problem: Acute pancreatitis Qualifiers: Pancreatitis type: idiopathic Acute pancreatitis complication: unspecified Q ualified Code(s): K85.00 - Idiopathic acute pancreatitis without necrosis or infection Did you review [place] [employer] for ALL controlled substances?: Not Applicable ED Provider: GRAEME SORIA Condition: Stable Physician Progress Note: Patient is here with upper abdominal pain. He has a history of pancreatitis and was admitted to the hospital for the same 2 weeks ago. He said he remained in hospital for about three or four days. He said he was discharged and his lipase had decreased to 500. I reviewed his medical records and his lipase is [address] scan showed an abnormal heterogeneous pancreatic tail of unknown etiology. He was discharged from the hospital after five days. He reports this episode started yesterday and describes it as a burning sensation. He said the pain got worse around midnight. He took Tylenol, ibuprofen and hot bath which gave no relief. He denies nausea and vomiting. I ordered IV fluids pain medicine and labs. His lipase is 1098.0. I called hospitalist to discuss admission and hospitalist accepted patient for to her admission for observation for pain medicine and fluids. I spoke to patient and told him he would be admitted. He received 4 mg of IV morphine and said that it did not help. I ordered another 2 mg of IV morphine.
[2024-07-01 10:43] LABS: BASOPHILS # (AUTO) 0.1 K/uL (0-0.2); BASOPHILS % (AUTO) 0.9 % (0.0-3.0); EOSINOPHILS # (AUTO) 0.4 K/ul (0.0-0.7); HEMATOCRIT 43.5 % (42.0-52.0); HEMOGLOBIN 12.9 g/dl (14.0-18.0); IMMATURE GRANULOCYTE % (AUTO) 0.3 % (0.0-5.0); LYMPHOCYTES # (AUTO) 2.5 K/uL (0.60-3.4); LYMPHOCYTES % (AUTO) 37.1 (10.0-50.0); MEAN CORPUSCULAR HEMOGLOBIN 19.9 pg (27.0-31.0); MEAN CORPUSCULAR HGB CONC 29.7 (31.8-35.4); MEAN CORPUSCULAR VOLUME 67.2 fl (80.0-94.0); MONOCYTES # (AUTO) 0.5 K/uL (0.4-2.0); MONOCYTES % (AUTO) 7.1 (0-10); NEUTROPHILS # (AUTO) 3.3 K/ul (2.0-6.9); NEUTROPHILS % (AUTO) 48.6 % (42.2-75.2); PLATELET COUNT 414 10^3/uL (140-440); RDW COEFFICIENT OF VARIATION 23.5 % (11.6-14.8); RED BLOOD COUNT 6.47 10^6/ul (4.70-6.10); WHITE BLOOD COUNT 6.72 K/ul (4.2-10.2)
[2024-07-01 10:55] LABS: ALANINE AMINOTRANSFERASE 125.6 U/L (0-50); ALBUMIN 3.07 g/dL (3.5-5.0); ALKALINE PHOSPHATASE 112.9 U/L (38-126); ASPARTATE AMINO TRANSFERASE 72.9 U/L (17-59); BILIRUBIN,TOTAL 0.43 mg/dL (0.2-1.3); BLOOD UREA NITROGEN 14.9 mg/dL (9-20); CALCIUM 8.48 mg/dL (8.4-10.2); CARBON DIOXIDE 20.5 mmol/L (22-30.0); CHLORIDE 102.8 mmol/L (98-107); CREATININE 1.35 mg/dL (0.60-1.10); GLUCOSE 141.1 mg/dL (74-106); POTASSIUM 4.48 mmol/L (3.5-5.1); SODIUM 132.5 mmol/L (134.5-145); TOTAL PROTEIN 5.73 g/dL (6.3-8.2)
[2024-07-01] MEDS: MORPHINE 4 MG/ML SYRINGE IVP ONE ×2 (11:01→12:34)
--- NOTE | 2024-07-01 11:09 | CT ---
EXAM: CT ABDOMEN AND PELVIS HISTORY: Abdominal pain, pancreatitis TECHNIQUE: Contiguous axial tomographic sections were obtained from the dome of the diaphragm through the ischial tuberosities. Coronal and sagittal reformats were then performed. Automatic exposure c ontrol was utilized for dose reduction technique. COMPARISON: 06/18/2024 FINDINGS: There is limited evaluation of the visceral organs/structures in the absence of IV contras t. LOWER CHEST: No acute findings. Limited evaluation. LIVER: Hepatomegaly. 21 cm craniocaudally. Limited evaluation for mass. GALLBLADDER: Contracted, no acute findings. BILIARY: Unremarkable. PANCREAS: Poorly evaluated in the absence of contrast. There is no evidence of over pancreatitis acu tely. Small anterior main pancreatic calcification noted. There are is nonspecific enlargement of t he tail of the pancreas seen on prior exam with areas of low density suggesting cystic changes descri bed there previously. Defer to MRI abdomen recently for further evaluation of the poorly evaluated p karl. SPLEEN: Mild splenic enlargement, 13 cm craniocaudally. ADRENALS: Normal size and shape without nodularity. KIDNEYS: The kidneys are unremarkable. Limited evaluation for mass in the absence of intravenous cont rast. VASCULATURE: Nonaneurysmal aorta. LYMPH NODES: No pathologically enlarged lymph nodes by CT size criteria. PERITONEUM/MESENTERY: Mild nonspecific stranding of the mesenteric fat in the abdomen and pelvis. No free air or ascites. BOWEL: No bowel obstruction. Appendix not definitively seen. Variable decompression of the colon limi ts evaluation, no colitis or acute diverticulitis detected. URINARY BLADDER: There is mild diffuse generalized urinary bladder wall thickening concerning for cys titis. REPRODUCTIVE: Prostate measures 4.3 cm across and is prominent. MUSCULOSKELETAL: No acute bony abnormalities. Spine fusion hardware. IMPRESSION: 1. No evidence of acute pancreatitis. Poorly evaluated pancreas in the absence of IV contrast. Panc reatic tail enlargement and low density foci in the tail are indeterminate by noncontrast CT, defer t o recent MRI abdomen and pelvis 06/20/2024. 2. Nonspecific graying of the intra-abdominal fat/mesentery. No ascites or free air. 3. Mild urinary bladder wall thickening, exclude cystitis. 4. Ancillary findings as above, see above report for details. 5. Limitations as above. All CT scans are performed using dose optimization techniques as appropriate to the performed exam an d include at least one of the following: Automated exposure control, adjustment of the mA and/or kV according t o size, and the use of iterative reconstruction technique.
--- NOTE | 2024-07-01 11:46 | PCM ---
Date of Service Date Seen by Provider: 07/01/24 Time Seen by Provider: 12:15 Admit Day/Time Admission Date: 07/01/24 Admission Time: 11:47 Reason for Admission Chief Complaint: PANCREATITIS Hospital Provider Hospital Provider: Douglas Wong PA-C[place] [facility] [place] Primary Care Physician: DON SCHAFER APRN History of Present Illness History of Present Illness: Patient is a 48 year old male with pmhx of barretts esophagus, hypertension, GERD, DMT2, who presents to ER with abdominal pain. Started last night. Found to have lipase 1098. CT abd/pelvis w/o negative. Pt given morphine and fluids. Pt states he's been eating a low fat diet. He denies alcohol use or drug use. No new medications started recently. Pt was seen at [facility] for abd pain on 06/17. Work up negative. Discharged with Carafate. Patient was admitted here from 06/19-06/23 for acute pancreatitis. He had MRCP at that time which showed acute pancreatitis. Lipase worsened to 2500 and then improved to 800s prior to discharge. Renal function normal at discharge. Pt was started on amlodipine for HTN. Patient followed up with PCP on 06/27. She stopped amlodipine and restarted lisinopril per patient wishes. Labs drawn that day revealed Cr of 3.8 and BUN in 60s. He was sent to [facility] where hew as hospitalized from 06/27-06/29. He was diagnosed with SUZANNA and hyponatremia. CT abd/pelvis showed mild stranding of the pancreas but otherwise normal. Renal US showed borderline increased renal echogenicity on the right, no evidence of obstructive uropathy or focal renal lesion. Patient was hydrated and at time fo discharge Na was 132 and Cr 1.5. Lisinopril and metformin were discontinued. Pt discharged on coreg 12.5 mg bid for htn. He has a f/u scheduled on 07/[address] Flores/GI. Case Discussed With Case Discussed With: Patient's case was discussed with the ER Physicians, Dr. Duvall. [facility] Surgical History hernia surgery back surgery Family History Mother Cancer FATHER Heart problem Hypertension Stroke Social History Smoking and tobacco status: Current every day smoker Tobacco type: cigarettes Substance use type: marijuana History of recent travel: No Allergies Allergies Allergy/AdvReac Type Severity Reaction Status Date / Time No Known Allergies Allergy Verified 06/27/24 10:45 Current Medications Home Medications lancets #100 ea 07/18/22 [Rx Confirmed 07/01/24 Last Taken Unknown] rosuvastatin 10 mg tablet See Rx Instructions .Route .COMPLEX #90 tabs 09/19/23 [Rx Confirmed 07/01/24 Last Taken 06/18/24] metformin 850 mg tablet See Rx Instructions .Route .COMPLEX #60 tabs 04/24/24 [Rx Confirmed 07/01/24 Last Taken 06/18/24] pantoprazole 40 mg tablet,delayed release 40 mg PO QDAY #30 tabs 05/30/24 [Rx Confirmed 07/01/24 Last Taken 06/18/24] amlodipine 5 mg tablet 10 mg (2 x 5 mg) PO BID #60 tabs 06/23/24 [Rx Confirmed 07/01/24 Last Taken Unknown] zolpidem 12.5 mg tablet,extended release,multiphase (Ambien CR) 12.5 mg PO QHS PRN insomnia #10 tabs 06/27/24 [Rx Confirmed 07/01/24 Last Taken Unknown] carvedilol 12.5 mg tablet 12.5 mg PO 2XD 07/01/24 [History Confirmed 07/01/24 Last Taken Unknown] Home Sodium Chloride (Sodium Chloride) 1,000 mls @ 250 mls/hr IV .Q4H SUSANA Morphine Sulfate (Morphine Sulfate 2 Mg/Ml Syringe) 2 mg IVP Q4HR PRN PRN Reason: MODERATE PAIN Last Admin: 07/01/24 12:34 Dose: 2 mg Pantoprazole Sodium (Pantoprazole Sodium 40 Mg Vial) 40 mg IVP DAILY SUSANA Last Admin: 07/01/24 12:34 Dose: 40 mg Discontinued Medications Sodium Chloride (Sodium Chloride) 1,000 mls @ 1,000 mls/hr IV BOLUS STA Stop: 07/01/24 12:21 Last Admin: 07/01/24 12:36 Dose: 1,000 mls/hr Morphine Sulfate (Morphine Sulfate 4 Mg/Ml Syringe) 4 mg IVP ONCE ONE Stop: 07/01/24 10:26 Last Admin: 07/01/24 11:01 Dose: 4 mg Morphine Sulfate (Morphine Sulfate 4 Mg/Ml Syringe) 2 mg IVP ONCE ONE Stop: 07/01/24 11:46 Last Admin: 07/01/24 12:34 Dose: Not Given Opioid Naive vs. Tolerant Does Patient Take Opioids?: No Is Patient Opioid Naive?: Yes What is Opioid Naive?: *Opioid Naive implies the patient is not already taking opioids or not chronically receiving opioids on a daily basis. *PRN dosing is not "usually" associated with tolerance. *Patients are at higher risk of over-sedation and aspiration. Is Patient Opioid Tolerant?: No What is Opioid Tolerant?: *Opioid Tolerance implies less than the expected response to an opioid. *Acquired tolerance is defined by the patient taking 60mg of oral morphine daily (or equianalgesic dose of another opioid) for 1 week or more. *Often associated with chronic pain. *May take more than usual dose to achieve desired pain control. Review of Systems Constitutional: Denies Fever Head: Reports Normocephalic and Atraumatic Cardiovascular: Denies Chest pain, Chest Pressure or Edema Respiratory: Denies Cough, Shortness of air or Hemoptysis Gastrointestinal: Reports Abdominal pain; Denies Nausea, Vomiting, Diarrhea or Melena Genitourinary: Denies Dysuria or Hematuria Dermatologic: Denies Rashes Physical examination Most Recent Vital Signs: Most Recent Vital Signs Temperature 97.6 F 07/01/24 09:40 Temperature Source Temporal Artery Scan 07/01/24 09:40 Pulse Rate 74 07/01/24 09:40 Respiratory Rate 18 07/01/24 09:40 Blood Pressure 126/80 07/01/24 09:40 O2 Sat by Pulse Oximetry 100 07/01/24 09:40 Height 5 ft 10 in 07/01/24 09:40 Weight 79.1 kg 07/01/24 09:40 Telemetry Heart Rate 65 05/24/17 07:00 Appearance: Positive No Apparent Distress and Alert and Oriented x3 Skin: Positive [place], Warm and Good Turgor; Negative Rashes HEENT: Positive Normocephalic and Atraumatic Neck: Positive Supple and Midline Trachea Chest/Lungs: Positive Clear to Auscultation Bilaterally; Negative Rales, Rhonci or Wheezes Heart: Positive RRR GI/: Positive Soft, Bowel Sounds Normal, No Distention and Tender Neurological: Positive Cranial Nerves Intact, Alert, Oriented and Muscle Strength 5/5 in Upper and Lower Extremities Bilaterally Psychiatric: Positive Oriented x4, Appropriate Mood and Appropriate Affect Labs This Visit Labs This Visit: Labs This Visit 07/01/24 10:40 WBC 6.72 RBC 6.47 H Hgb 12.9 L Hct 43.5 MCV 67.2 L MCH 19.9 L MCHC 29.7 L RDW Coeff of Katie 23.5 H Plt Count 414 Immature Gran % (Auto) 0.3 Neut % (Auto) 48.6 Lymph % (Auto) 37.1 [place] % (Auto) 7.1 Eos % (Auto) 6.0 Baso % (Auto) 0.9 Neut # (Auto) 3.3 Lymph # (Auto) 2.5 [place] # (Auto) 0.5 Eos # (Auto) 0.4 Baso # (Auto) 0.1 Immature Gran # (Auto) 0.0 Sodium 132.5 L Potassium 4.48 Chloride 102.8 Carbon Dioxide 20.5 L Anion Gap 13.68 BUN 14.9 Creatinine 1.35 H Estimated GFR (MDRD) 56.00 BUN/Creatinine Ratio 11.03 Glucose 141.1 H Calcium 8.48 Total Bilirubin 0.43 AST 72.9 H ALT 125.6 H Alkaline Phosphatase 112.9 Total Protein 5.73 L Albumin 3.07 L Globulin 2.66 Albumin/Globulin Ratio 1.15 Lipase 1098.0 H Imaging Imaging: EXAM: CT ABDOMEN AND PELVIS HISTORY: Abdominal pain, pancreatitis TECHNIQUE: Contiguous axial tomographic sections were obtained from the dome of the diaphragm through the ischial tuberosities. Coronal and sagittal reformats were then performed. Automatic exposure control was utilized for dose reduction technique. COMPARISON: 06/18/2024 FINDINGS: There is limited evaluation of the visceral organs/structures in the absence of IV contrast. LOWER CHEST: No acute findings. Limited evaluation. LIVER: Hepatomegaly. 21 cm craniocaudally. Limited evaluation for mass. GALLBLADDER: Contracted, no acute findings. BILIARY: Unremarkable. PANCREAS: Poorly evaluated in the absence of contrast. There is no evidence of over pancreatitis acutely. Small anterior main pancreatic calcification noted. There are is nonspecific enlargement of the tail of the pancreas seen on prior exam with areas of low density suggesting cystic changes described there previously. Defer to MRI abdomen recently for further evaluation of the poorly evaluated pancreas. SPLEEN: Mild splenic enlargement, 13 cm craniocaudally. ADRENALS: Normal size and shape without nodularity. KIDNEYS: The kidneys are unremarkable. Limited evaluation for mass in the absence of intravenous contrast. VASCULATURE: Nonaneurysmal aorta. LYMPH NODES: No pathologically enlarged lymph nodes by CT size criteria. PERITONEUM/MESENTERY: Mild nonspecific stranding of the mesenteric fat in the abdomen and pelvis. No free air or ascites. BOWEL: No bowel obstruction. Appendix not definitively seen. Variable decompression of the colon limits evaluation, no colitis or acute diverticulitis detected. URINARY BLADDER: There is mild diffuse generalized urinary bladder wall thickening concerning for cystitis. REPRODUCTIVE: Prostate measures 4.3 cm across and is prominent. MUSCULOSKELETAL: No acute bony abnormalities. Spine fusion hardware. IMPRESSION: 1. No evidence of acute pancreatitis. Poorly evaluated pancreas in the absence of IV contrast. Pancreatic tail enlargement and low density foci in the tail are indeterminate by noncontrast CT, defer to recent MRI abdomen and pelvis 06/20/2024. 2. Nonspecific graying of the intra-abdominal fat/mesentery. No ascites or free air. 3. Mild urinary bladder wall thickening, exclude cystitis. 4. Ancillary findings as above, see above report for details. 5. Limitations as above. Review Statement Review Statement: I have independently reviewed and interpreted the labs/EKGs/imaging that were ordered by the ER provider. I have reviewed all outside records that are available currently in our EMR including imaging/notes/labs from previous visits. Plan Plan: 1. Acute pancreatitis - Lipase 1098 today. NPO. NS at 250 ml/hr. Check accuchecks q6hrs, if glucose drops will add D5 to fluids. Morphine prn, will e scalate to fentanyl if needed. Zofran prn. Pt had recent MRCP. Has f/u with Dr. Flores 07/17. Trigs recently normal. 2. Hypertension - Cont coreg 3. GERD - Cont home meds 4. Hyperlipidemia - Cont home meds 5. DMT2 - Per [facility] records metformin was stopped DVT Prophylaxis: Ambulation Time Spent: Greater than 80 minutes spent with patient, 50% of the time spent with this patient was devoted to counseling and coordination of care. [facility] minutes spent discussing advance care planning. Admit to: Obs Discussed Plan of Care with Dr. Joanna Griffin. Medications Medication Orders: Medications Ordered Category Date Time Status Sodium Chloride 0.9% [Sodium Chloride] 1,000 ml Meds 07/01/24 11:22 Active IV BOLUS
[2024-07-01 12:09] LABS: SARS COV-2 RNA RAPID NAAT NEGATIVE (NEGATIVE)
[2024-07-01] MEDS: MORPHINE 2 MG/ML SYRINGE IVP PRN (12:34)
[2024-07-01] MEDS: PROTONIX IVP SCH (12:34)
[2024-07-01] MEDS: SODIUM CHLORIDE 1,000 ML IV STA (12:36)
[2024-07-01] MEDS: SODIUM CHLORIDE 1,000 ML IV SCH (13:08)
[2024-07-01 13:20] VITALS: BMI 24.9
[2024-07-01] MEDS: SUBLIMAZE IVP PRN (14:52)
[2024-07-01] MEDS ORDERED: ZOFRAN 4 MG/2 ML IVP PRN (15:37)
[2024-07-01] MEDS ORDERED: ZOLPIDEM 12.5 MG PO PRN (18:23)
[2024-07-01] MEDS ORDERED: EXT PO PRN (18:23)
[2024-07-01] MEDS: DEXTROSE 5%-NS IV SOLUTION 1,000 ML IV ONE (18:54)
[2024-07-01] MEDS: COREG PO SCH (21:12)
[2024-07-01] MEDS: AMBIEN PO PRN (21:36)
[2024-07-02 05:11] LABS: BASOPHILS # (AUTO) 0.1 K/uL (0-0.2); BASOPHILS % (AUTO) 0.7 % (0.0-3.0); EOSINOPHILS # (AUTO) 0.3 K/ul (0.0-0.7); EOSINOPHILS % (AUTO) 4.9 % (0.0-7.0); HEMATOCRIT 43.7 % (42.0-52.0); HEMOGLOBIN 12.7 g/dl (14.0-18.0); IMMATURE GRANULOCYTE % (AUTO) 0.1 % (0.0-5.0); LYMPHOCYTES # (AUTO) 2.5 K/uL (0.60-3.4); LYMPHOCYTES % (AUTO) 36.3 (10.0-50.0); MEAN CORPUSCULAR HEMOGLOBIN 19.6 pg (27.0-31.0); MEAN CORPUSCULAR HGB CONC 29.1 (31.8-35.4); MEAN CORPUSCULAR VOLUME 67.5 fl (80.0-94.0); MONOCYTES # (AUTO) 0.5 K/uL (0.4-2.0); MONOCYTES % (AUTO) 7.9 (0-10); NEUTROPHILS # (AUTO) 3.4 K/ul (2.0-6.9); NEUTROPHILS % (AUTO) 50.1 % (42.2-75.2); PLATELET COUNT 406 10^3/uL (140-440); RDW COEFFICIENT OF VARIATION 23.7 % (11.6-14.8); RED BLOOD COUNT 6.47 10^6/ul (4.70-6.10)
[2024-07-02 05:23] LABS: ALANINE AMINOTRANSFERASE 112.2 U/L (0-50); ALBUMIN 3.24 g/dL (3.5-5.0); ALKALINE PHOSPHATASE 103.6 U/L (38-126); ASPARTATE AMINO TRANSFERASE 62.4 U/L (17-59); BILIRUBIN,TOTAL 0.42 mg/dL (0.2-1.3); BLOOD UREA NITROGEN 13.6 mg/dL (9-20); CALCIUM 8.98 mg/dL (8.4-10.2); CARBON DIOXIDE 23.1 mmol/L (22-30.0); CHLORIDE 106.5 mmol/L (98-107); CREATININE 1.25 mg/dL (0.60-1.10); GLUCOSE 101.9 mg/dL (74-106); LIPASE 446.9 U/L (23-300); POTASSIUM 4.38 mmol/L (3.5-5.1); SODIUM 136.3 mmol/L (134.5-145); TOTAL PROTEIN 5.93 g/dL (6.3-8.2)
[2024-07-02 07:59] VITALS: RESP 16
[2024-07-02] MEDS: CRESTOR PO SCH (08:37)
[2024-07-02 09:46] VITALS: BP 131/86; PULSE 61; TEMP 97.9
--- NOTE | 2024-07-02 09:49 | DCSUM ---
Admission Date Admission Date: 07/01/24 Discharge Date Discharge Date: 07/02/24 Admission Diagnosis Admission Diagnosis: 1. Acute pancreatitis 2. Hypertension 3. GERD 4. Hyperlipidemia 5. DMT2 Discharge Diagnosis Discharge Diagnosis: 1. Acute pancreatitis - Improved, Lipase 400s today, Has f/u with Dr. Flores 07/17. 2. Hypertension - Chronic, stable, cont coreg 3. GERD - Chronic, stable 4. Hyperlipidemia - Chronic, stable 5. DMT2 - Per [facility] records metformin was stopped Hospital Provider Hospital [facility] Primary [facility] Physician Primary Care Physician: DON SCHAFER APRN Summary of History and Physical Summary of History and Physical: Patient is a 48 year old male with pmhx of barretts esophagus, hypertension, GERD, DMT2, who presents to ER with abdominal pain. Started last night. Found to have lipase 1098. CT abd/pelvis w/o negative. Pt given morphine and fluids. Pt states he's been eating a low fat diet. He denies alcohol use or drug use. No new medications started recently. Pt was seen at [facility] ER for abd pain on 06/17. Work up negative. Discharged with Carafate. Patient was admitted here from 06/19-06/23 for acute pancreatitis. He had MRCP at that time which showed acute pancreatitis. Lipase worsened to 2500 and then improved to 800s prior to discharge. Renal function normal at discharge. Pt was started on amlodipine for HTN. Patient followed up with PCP on 06/27. She stopped amlodipine and restarted lisinopril per patient wishes. Labs drawn that day revealed Cr of 3.8 and BUN in 60s. He was sent to [facility] ER where hew as hospitalized from 06/27-06/29. He was diagnosed with SUZANNA and hyponatremia. CT abd/pelvis showed mild stranding of the pancreas but otherwise normal. Renal US showed borderline increased renal echogenicity on the right, no evidence of obstructive uropathy or focal renal lesion. Patient was hydrated and at time fo discharge Na was 132 and Cr 1.5. Lisinopril and metformin were discontinued. Pt discharged on coreg 12.5 mg bid for htn. He has a f/u scheduled on 07/[address] Flores/GI. Hospital Course Subjective: Patient received NS@250mL/hr and NPO for treatment of pancreatitis. Required morphine initially and then fentanyl for pain control. Pain improved this am and was requesting food. Lipase down to 400s this am and wanting to be discharged. Discussed diet and what he had been ingesting. Voiced concerns and need for asphalt engineer. In house asphalt engineer spoke extensively with patient prior to discharge. D/c with norco for break through pain until flare up resolves. No changes to home medications during this stay. Follow-up with PCP this week. Appearance: Pleasant, No Apparent Distress and Alert HEENT: MMM and Supple CVS: No Murmur Abdomen: Soft, Non-Tender and No Distention Respiratory: No Dyspnea Extremities: No Edema Vital Signs: Most Recent Vital Signs Temperature 97.9 F 07/02/24 09:41 Temperature Source Tympanic 07/02/24 09:41 Temperature Source Temporal Artery Scan 07/01/24 09:40 Pulse Rate 61 07/02/24 09:41 Respiratory Rate 16 07/02/24 09:41 Blood Pressure 131/86 07/02/24 09:41 Blood Pressure Mean 101 07/02/24 09:41 Blood Pressure Left Arm 140/90 07/01/24 13:04 Blood Pressure Location Left Arm 07/02/24 09:41 Blood Pressure Position Sitting 07/02/24 09:41 O2 Sat by Pulse Oximetry 100 07/02/24 09:41 Oxygen Delivery Method Room Air 07/02/24 09:41 Height 5 ft 10 in 07/01/24 13:04 Weight 78.8 kg 07/01/24 13:04 Telemetry Heart Rate 65 05/24/17 07:00 Lab Results Last 24 Hours: 07/02/24 07/01/24 07/01/24 05:06 11:56 10:40 WBC 6.80 6.72 RBC 6.47 H 6.47 H Hgb 12.7 L 12.9 L Hct 43.7 43.5 MCV 67.5 L 67.2 L MCH 19.6 L 19.9 L MCHC 29.1 L 29.7 L RDW Coeff of Katie 23.7 H 23.5 H Plt Count 406 414 Immature Gran % (Auto) 0.1 0.3 Neut % (Auto) 50.1 48.6 Lymph % (Auto) 36.3 37.1 Haakon % (Auto) 7.9 7.1 Eos % (Auto) 4.9 6.0 Baso % (Auto) 0.7 0.9 Neut # (Auto) 3.4 3.3 Lymph # (Auto) 2.5 2.5 Haakon # (Auto) 0.5 0.5 Eos # (Auto) 0.3 0.4 Baso # (Auto) 0.1 0.1 Immature Gran # (Auto) 0.0 0.0 Sodium 136.3 132.5 L Potassium 4.38 4.48 Chloride 106.5 102.8 Carbon Dioxide 23.1 20.5 L Anion Gap 11.08 13.68 BUN 13.6 14.9 Creatinine 1.25 H 1.35 H Estimated GFR (MDRD) 61.00 56.00 BUN/Creatinine Ratio 10.88 11.03 Glucose 101.9 141.1 H Calcium 8.98 8.48 Total Bilirubin 0.42 0.43 AST 62.4 H 72.9 H ALT 112.2 H 125.6 H Alkaline Phosphatase 103.6 112.9 Total Protein 5.93 L 5.73 L Albumin 3.24 L 3.07 L Globulin 2.69 2.66 Albumin/Globulin Ratio 1.20 1.15 Lipase 446.9 H 1098.0 H SARS CoV-2 RNA Rapid KEVIN Negative Discharge Instructions Discharge Planning: Discharge Planning > 40 minutes If patient is discharged with left ventricular systolic dysfunction: NA Discharged with a beta ana? [] If no, why not? [] Discharged with an reagan/arb? [] If no, why not? [] Diagnosis: Acute on chronic Pancreatitis Diet: Low fat Drink adequate water/fluids daily up to 78 ounces/ or 2340 ml daily Activity: as tolerated Follow-up with PCP this week Medications: Vowinckel 5/325 every 4-6 hours as needed for pain Discharge Medications: Medications at Discharge (Home Meds & RX) lancets #100 ea 07/18/22 rosuvastatin 10 mg tablet See Rx Instructions .Route .COMPLEX #90 tabs 09/19/23 metformin 850 mg tablet See Rx Instructions .Route .COMPLEX #60 tabs 04/24/24 pantoprazole 40 mg tablet,delayed release 40 mg PO QDAY #30 tabs 05/30/24 amlodipine 5 mg tablet 10 mg (2 x 5 mg) PO BID #60 tabs 06/23/24 zolpidem 12.5 mg tablet,extended release,multiphase (Ambien CR) 12.5 mg PO QHS PRN insomnia #10 tabs 06/27/24 carvedilol 12.5 mg tablet 12.5 mg PO 2XD 07/01/24 Discharge Plan Discharge Discharge Orders: Discharge Patient (ONCE); Ordered 07/02/24 Ordered By: BONI CHENG Activity Restrictions/Additional Instructions: Diagnosis: Acute on chronic Pancreatitis Diet: Low fat Drink adequate water/fluids daily up to 78 ounces/ or 2340 ml daily Activity: as tolerated Follow-up with PCP this week Medications: Vowinckel 5/325 every 4-6 hours as needed for pain Instructions: Pancreatitis (GEN), Low Fat Diet (GEN) Patient Disposition: HOME WITH FAMILY CARE Prescriptions: New hydrocodone-acetaminophen 5-325 mg tablet 1 tab PO Q4-6H PRN (Reason: pain) Qty: 14 0RF Continued rosuvastatin 10 mg tablet See Rx Instructions .ROUTE .COMPLEX Qty: 90 2RF Dose Instruction: TAKE ONE TABLET DAILY Rx Instructions: TAKE ONE TABLET DAILY carvedilol 12.5 mg tablet 12.5 mg PO 2XD pantoprazole 40 mg tablet,delayed release (DR/EC) 40 mg PO QDAY Qty: 30 2RF zolpidem [Ambien CR] 12.5 mg tablet,ext release multiphase 12.5 mg PO QHS PRN (Reason: insomnia) Qty: 10 0RF Discontinued metformin 850 mg tablet See Rx Instructions .ROUTE .COMPLEX Qty: 60 2RF Dose Instruction: TAKE ONE TABLET TWICE DAILY Rx Instructions: TAKE ONE TABLET TWICE DAILY No Action (DME) lancets Misc See Rx Instructions .ROUTE Qty: 100 0RF Rx Instructions: As directed amlodipine 5 mg Tablet 10 mg PO BID Qty: 60 0RF Did you review [place] [employer] LIAISON OFFICER for ALL controlled substances?: No Discussed opioids are addictive and Narcan is available by prescription or from pharmacy.: No Condition: Stable Referrals: DON SCHAFER APRN [Primary Care Provider] - 07/06/24 10:30 am
== END 2024-07-02 11:16 | disposition home or self-care (01) ==
LOC: ED 09:34 → MEDSURG B 09:34
PROVIDERS: ADMIT Hospitalist; ATTEND Physician Assistant
DX: E78.5 Hyperlipidemia, unspecified; Z79.899 Other long term (current) drug therapy; K85.00 Idiopathic acute pancreatitis without necrosis or infection; K21.9 Gastro-esophageal reflux disease without esophagitis; Z51.81 Encounter for therapeutic drug level monitoring; Z79.84 Long term (current) use of oral hypoglycemic drugs; Z20.822 Contact with and (suspected) exposure to COVID-19; I10 Essential (primary) hypertension; F17.210 Nicotine dependence, cigarettes, uncomplicated; E11.9 Type 2 diabetes mellitus without complications